=== PATIENT | male | born 1995 | race Caucasian/White ===

== ENCOUNTER 2018-01-10 21:07 | Inpatient (IN) | payer MEDICARE, MEDICAID ==
--- NOTE | 2018-01-10 22:30 | ED ---
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 Patient is on Prolixin, Synthroid, and Depakote. Apparently [facility] called the police and told them they were concerned he was not taking his medication so they brought him here. He takes medications for schizophrenia and bipolar disorder. He denies any thoughts of suicide, harming himself, or harming anyone else at this time. He states he was walking home from the store when the police confronted him. Patient has no other complaints at this time including shortness of breath, chest pain, abdominal pain, nausea or vomiting, headache, or visual changes. - Related Data Home Medications Medication Instructions Recorded Confirmed Cholecalciferol [Vitamin D3] 1,000 unit PO DAILY 01/10/18 01/10/18 Cyanocobalamin (Vitamin B-12) 1,000 mcg PO DAILY 01/10/18 01/10/18 [Vitamin B-12] Divalproex ER [Depakote ER] 1,000 mg PO HS 01/10/18 01/10/18 Levothyroxine Sodium [Synthroid] 75 mg PO DAILY 01/10/18 01/10/18 [place]-3 Fatty Acids/Fish Oil [Fish 2,000 mg PO HS 01/10/18 01/10/18 Oil 1,000 mg Softgel] fluPHENAZine DECANOATE [Prolixin 0.5 ml IM QMONTH 01/10/18 01/10/18 Decanoate] Allergies Allergy/AdvReac Type Severity Reaction Status Date / Time haloperidol [From Haldol] Allergy Rash/Hives Verified 01/10/18 22:12 haloperidol lactate Allergy Rash/Hives Verified 01/10/18 22:12 [From Haldol] risperidone [From Risperdal] Allergy Unknown Verified 01/10/18 22:12 Review of Systems ROS Statement: Those systems with pertinent positive or pertinent negative responses have been documented in the HPI. ROS Other: All systems not noted in ROS Statement are negative. Past Medical History Past Medical History: No Reported History Additional Past Medical History / Comment(s): Scoliosis , stomach ulcers History of Any Multi-Drug Resistant Organisms: None Reported Past Surgical History: No Surgical Hx Reported, Hernia Repair Past Anesthesia/Blood Transfusion Reactions: No Reported Reaction Past Psychological History: Depression, Schizophrenia Smoking Status: Current every day smoker Past Alcohol Use History: None Reported Past Drug Use History: None Reported General Exam Limitations: no limitations General appearance: alert, in no apparent distress Head exam: Present: atraumatic, normocephalic, normal inspection Eye exam: Present: normal appearance, PERRL, EOMI. Absent: scleral icterus, conjunctival injection, periorbital swelling ENT exam: Present: normal exam, mucous membranes moist Neck exam: Present: normal inspection, full ROM. Absent: tenderness, meningismus, lymphadenopathy Respiratory exam: Present: normal lung sounds bilaterally. Absent: respiratory distress, wheezes, rales, rhonchi, stridor Cardiovascular Exam: Present: regular rate, normal rhythm, normal heart sounds. Absent: systolic murmur, diastolic murmur, rubs, gallop, clicks Neurological exam: Present: alert, oriented X3, CN II-XII intact Psychiatric exam: Present: normal affect (Cooperative, pleasant), normal mood. Absent: homicidal ideation, suicidal ideation Course Vital Signs 01/10/18 01/10/18 21:08 22:39 Temperature 98.4 F Pulse Rate 114 H 58 L Respiratory 16 16 Rate Blood Pressure 151/83 121/77 O2 Sat by Pulse 100 96 Oximetry Medical Decision Making - Medical Decision Making 22-year-old male presents to the emergency department by police escort due to not taking his psychiatric medications. Patient was evaluated by EPS and admitted for this reason. He denies suicidal thoughts and states he is generally feeling well. - Lab Data Result diagrams: 01/11/18 11:40 01/11/18 11:40 Lab Results 01/10/18 Range/Units 22:20 Urine Opiates Screen Not Detected (NotDetected) Ur Oxycodone Screen Not Detected (NotDetected) Urine Methadone Screen Not Detected (NotDetected) Ur Propoxyphene Screen Not Detected (NotDetected) Ur Barbiturates Screen Not Detected (NotDetected) U Tricyclic Antidepress Not Detected (NotDetected) Ur Phencyclidine Scrn Not Detected (NotDetected) Ur Amphetamines Screen Not Detected (NotDetected) U Methamphetamines Scrn Not Detected (NotDetected) U Benzodiazepines Scrn Not Detected (NotDetected) Urine Cocaine Screen Not Detected (NotDetected) U Marijuana (THC) Screen Detected H (NotDetected) Disposition Clinical Impression: Noncompliance with medication regimen Disposition: ADMITTED IP TO THIS [facility] Condition: Good
[2018-01-10 22:53] LABS: Amphetamine Screen,Urine Not Detected (NotDetected); Barbiturate Screen,Urine Not Detected (NotDetected); Benzodiazepines Screen,Urine Not Detected (NotDetected); Cocaine Screen,Urine Not Detected (NotDetected); Methadone Screen, Urine Not Detected (NotDetected); Opiate Screen,Urine Not Detected (NotDetected); Oxycodone Screen, Urine Not Detected (NotDetected); Phencyclidine Screen,Urine Not Detected (NotDetected); Tricyclic Antidepressant,Urine Not Detected (NotDetected); Urn Cannabinoid Scrn Detected (NotDetected)
[2018-01-11] MEDS ORDERED: ZIPRASIDONE 20 MG VIAL IM PRN (03:08)
[2018-01-11] MEDS ORDERED: MAGNESIUM HYDROXIDE 2,400 MG/10 ML CUP PO PRN (03:08)
[2018-01-11] MEDS ORDERED: MAG HYDROX/AL HYDROX/SIMETH 30 ML CUP PO PRN (03:08)
[2018-01-11] MEDS ORDERED: ACETAMINOPHEN TAB 325 MG TAB PO PRN (03:08)
[2018-01-11] MEDS ORDERED: LORazepam 1 MG TAB PO PRN (03:08)
--- NOTE | 2018-01-11 06:56 | P.MDCNMH ---
History of Present Illness H&P Date: 01/11/18 Chief Complaint: medicalevaluation 22-year-old male with history of hypothyroid and schizophrenia. Patient presented the hospital escorted with police upon court order as he was petitioned by [facility] due to medical noncompliance and not taking his medications. He currently denies any physical complaints denies any chest pain or trouble breathing fevers or chills denies any coughing denies any headache denies any abdominal pain nausea vomiting denies any focal neurologic deficits. Patient denies any suicidal or homicidal ideation he claims that he sometimes takes his medications. She denied any visual or auditory hallucinations at this time. He denied any drug abuse, denied any regular alcohol use. Review of Systems Pertinent positives as noted in HPI. All other systems were reviewed and are negative Past Medical History Past Medical History: No Reported History Additional Past Medical History / Comment(s): Scoliosis , stomach ulcers History of Any Multi-Drug Resistant Organisms: None Reported Past Surgical History: No Surgical Hx Reported, Hernia Repair Past Anesthesia/Blood Transfusion Reactions: No Reported Reaction Smoking Status: Current every day smoker Medications and Allergies Home Medications Medication Instructions Recorded Confirmed Type Cholecalciferol [Vitamin D3] 1,000 unit PO DAILY 01/10/18 01/10/18 History Cyanocobalamin (Vitamin B-12) 1,000 mcg PO DAILY 01/10/18 01/10/18 History [Vitamin B-12] Divalproex ER [Depakote ER] 1,000 mg PO HS 01/10/18 01/10/18 History Levothyroxine Sodium [Synthroid] 75 mg PO DAILY 01/10/18 01/10/18 History [place]-3 Fatty Acids/Fish Oil [Fish 2,000 mg PO HS 01/10/18 01/10/18 History Oil 1,000 mg Softgel] fluPHENAZine DECANOATE [Prolixin 0.5 ml IM QMONTH 01/10/18 01/10/18 History Decanoate] Allergies Allergy/AdvReac Type Severity Reaction Status Date / Time haloperidol [From Haldol] Allergy Rash/Hives Verified 01/10/18 22:12 haloperidol lactate Allergy Rash/Hives Verified 01/10/18 22:12 [From Haldol] risperidone [From Risperdal] Allergy Unknown Verified 01/10/18 22:12 Physical Exam Vitals: Vital Signs Temp Pulse Pulse Resp BP BP Pulse Ox 01/11/18 03:50 70 12 118/64 01/11/18 03:10 97.4 F L 67 16 116/72 96 01/10/18 22:39 58 L 16 121/77 96 01/10/18 21:08 98.4 F 114 H 16 151/83 100 Intake and Output 01/10/18 01/10/18 01/11/18 14:59 22:59 06:59 Other: Weight 97.522 kg 90.265 kg Constitutional: No acute distress, conversant, pleasant Eyes: Anicteric sclerae, moist conjunctiva, no lid-lag Pupils equal round reactive to light ENMT: NC/AT Oropharynx clear, no erythema, exudates Neck: Supple, FROM, no masses, or JVD No carotid bruits No thyromegaly Lungs: Clear to auscultation Clear to percussion Normal respiratory effort, no accessory muscle use Cardiovascular: Heart regular in rate and rhythm, No murmurs, gallops, or rubs No peripheral edema Abdominal: Soft Nontender, no guarding, rebound or rigidity Abdomen moving with respiration Normoactive bowel sounds No hepatomegaly, No splenomegaly No palpable mass No abdominal wall hernia noted Skin: Normal temperature, tone, texture, turgor No induration No subcutaneous nodules No lesions No ulcers There is small area of petechial rash over the medial aspect of the left ankle nontender to palpation no induration no swelling no drainage. Extremities: No digital cyanosis No clubbing Pedal pulses intact and symmetrical Radial pulses intact and symmetrical No calf tenderness Psychiatric: Alert and oriented to person, place and time Appropriate affect fair judgement Neuro Muscles Strength 5/5 in all 4 extremities Sensation to light touch grossly present throughout Cranial nerves II-XII grossly intact No focal sensory deficits Lymphatics: no palpable cervical or supraclavicular , or inguinal lymph nodes Cranial Nerve Examination - Cranial Nerves Cranial Nerve II- Optic: Intact Cranial Nerve III- Oculomotor: Intact Cranial Nerve IV- Trochlear: Intact Cranial Nerve V- Trigeminal: Intact Cranial Nerve - Abducens: Intact Cranial Nerve VII- Facial: Intact Cranial Nerve VIII- Auditory: Intact Cranial Nerve IX- Glossopharyngeal: Intact Cranial Nerve X- Vagus: Intact Cranial Nerve XI- Accessory: Intact Cranial Nerve XII- Hypoglossal: Intact Results Labs: Abnormal Lab Results - Last 24 Hours (Table) 01/10/18 Range/Units 22:20 U Marijuana (THC) Screen Detected H (NotDetected) Assessment and Plan Assessment: 22-year-old male with history of mental health illness schizophrenia, patient petitioned and brought the hospital by court order by [facility] due to medical noncompliance. Currently denies any medical problems Plan: History of schizophrenia History of depression Management per psych Foot rash possibly tenia corporis clotrimazol + steroid cream BID Tobacco smoking abuse Patient counseled to quit smoking Nicotine replacement therapy offered History of hypothyroidism Continue levothyroxine TSH and free T4 Low risk for DVT patient is ambulatory Thank you for allowing us to participate in the care of this patient. We will follow peripherally. Do not hesitate to contact us with questions. Someone can be reached from the [facility] hospitalist group at all hours of the day at [phone].
[2018-01-11] MEDS: LEVOTHYROXINE 75 MCG TAB PO SCH (07:30)
[2018-01-11] MEDS: NICOTINE 21MG/24HR PATCH TRANSDERM SCH (07:30)
[2018-01-11] MEDS: CLOTRIMAZOLE/BETAMETH 1-0.05% CREAM 45 GM TUBE TOPICAL SCH ×2 (08:55→20:06)
[2018-01-11] MEDS ORDERED: LEVOTHYROXINE 75 MCG TAB PO SCH (09:00)
[2018-01-11 12:27] LABS: Basophils % (A) 0 %; Eosinophils # (A) 0.1 k/uL (0-0.7); Eosinophils % (A) 1 %; HCT 49.9 % (39.0-53.0); HGB 16.2 gm/dL (13.0-17.5); Lymphocytes # (A) 1.9 k/uL (1.0-4.8); Lymphocytes % (A) 19 %; MCH 32.2 pg (25.0-35.0); MCHC 32.3 g/dL (31.0-37.0); MCV 99.4 fL (80.0-100.0); Mean Platelet Volume 6.5; Monocytes # (A) 0.4 k/uL (0-1.0); Monocytes % (A) 4 %; Neutrophils # (A) 7.6 k/uL (1.3-7.7); Neutrophils % (A) 75 %; Platelet Count 232 k/uL (150-450); RBC 5.02 m/uL (4.30-5.90); RDW 12.9 % (11.5-15.5); WBC 10.2 k/uL (3.8-10.6)
[2018-01-11 12:47] LABS: ALT 17 U/L (21-72); AST 18 U/L (17-59); Albumin 5.4 g/dL (3.5-5.0); Alkaline Phosphatase 108 U/L (38-126); Anion Gap 12 mmol/L; Bilirubin, Delta 0.2 mg/dL (0.0-0.2); Bilirubin,Unconjugated 0.8 mg/dL (0.0-1.1); Blood Urea Nitrogen 12 mg/dL (9-20); Calcium 10.6 mg/dL (8.4-10.2); Carbon Dioxide 25 mmol/L (22-30); Chloride 106 mmol/L (98-107); Cholesterol 135 mg/dL (<200); Glucose 94 mg/dL (74-99); HDL Cholesterol 42 mg/dL (40-60); LDL Cholesterol,Calculated 73 mg/dL (0-99); Potassium 4.4 mmol/L (3.5-5.1); Sodium 143 mmol/L (137-145); Total Protein 8.3 g/dL (6.3-8.2); Triglycerides 100 mg/dL (<150)
[2018-01-11 12:52] LABS: Valproic Acid (Depakene) <10.0 ug/mL
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
[2018-01-11] MEDS: DIVALPROEX ER 500 MG TAB.ER.24H PO SCH (20:05)
[2018-01-11 21:00] LABS: Hemoglobin A1C 5.1 % (4.0-6.0)
[2018-01-12] MEDS: LEVOTHYROXINE 75 MCG TAB PO SCH (06:12)
[2018-01-12] MEDS: DIVALPROEX ER 500 MG TAB.ER.24H PO SCH ×3 (07:42→20:03)
[2018-01-12] MEDS: NICOTINE 21MG/24HR PATCH TRANSDERM SCH (07:42)
[2018-01-12] MEDS: CLOTRIMAZOLE/BETAMETH 1-0.05% CREAM 45 GM TUBE TOPICAL SCH ×2 (07:43→20:03)
--- NOTE | 2018-01-12 15:02 | P.PN ---
Progress Note - Text Progress Note Date: 01/12/18 IDENTIFICATION DATA: 22 year-old male, lives with his friend. He has a public guardian Joy. He is on Court order for treatment which will July 24, 2018. Patient was petitioned by his [facility] and brought to Emergency Center due to not following through with his court order of treatment. Admits to not taking Depakote as prescribed for three weeks. He also takes Prolixin decanoate 0.5ml/ q month prescribed through [facility]. his last dose date need to be explored, so he can receive his injection. INTERVAL HISTORY: He syas he is doing the best he can here. He reports going to all his groups even though he says he does not have to. He denies symptoms of psychosis, tsering or depression. He has foul body odor and was dressed heavily . He reports good sleep and appetite. Reports being complaint with medications and denies side effects. MENTAL STATUS EXAMINATION: The patient is alert and oriented 4 and in no apparent distress. Motor and speech behaviors are within normal limits. Mood is "okay" and affect is neutral with some range and reactivity. thought processes linear thought content is negative for suicidal or homicidal ideation. insight and judgment are limited. ASSESSMENT AND PLAN: No further changes at this time.
[2018-01-13] MEDS: LEVOTHYROXINE 75 MCG TAB PO SCH (07:14)
[2018-01-13] MEDS: NICOTINE 21MG/24HR PATCH TRANSDERM SCH (08:53)
[2018-01-13] MEDS: CLOTRIMAZOLE/BETAMETH 1-0.05% CREAM 45 GM TUBE TOPICAL SCH ×2 (08:54→20:09)
[2018-01-13] MEDS ORDERED: fluPHENAZine DECANOATE 25 MG/ML 5ML MDV IM ONE (11:00)
--- NOTE | 2018-01-13 11:03 | P.PN ---
Progress Note - Text Interval history: The patient is found in group he follows me to an interview room. The patient was admitted over the weekend due to noncompliance with an existing treatment order. He has an unspecified psychotic disorder and is prescribed Prolixin Decanoate as well as Depakote ER. He admits he had not been on this medication and he was petition by [facility]. The patient has been compliant with oral medication so far. He has been overdue for his Prolixin Decanoate injection of 12.5 mg which he receives every 4 weeks. He indicates that he sleeping 10-11 hours in the evening he has been attending groups. He reports he has been showering. He is hoping to be discharged as soon as possible. He indicates it's been difficult keeping up with his medication has he has no phone and no transportation of his own. We believe he is homeless he states he staying with her friend. Mental status exam: The patient is a tall thin male appearing his stated age. He is dressed in his own clothing wearing a hooded sweatshirt with the berumen up. Eye contact is appropriate speech is fluent spontaneous nonpressured. He is malodorous. He reports his mood is good he is reporting no suicidal or homicidal ideation intent or plan. He indicates having no symptoms and he clearly is trying to facilitate a discharge. He demonstrates no flight of ideas or loose associations. He demonstrates no verbal or physical aggressiveness he demonstrates no involuntary repetitive movements. He is oriented to person place and date. Affect is bright. Plan: The patient has been admitted on an existing treatment order for noncompliance with medication. His Depakote ER has been restarted he will receive the Prolixin Decanoate injection today of 12.5 mg. We will monitor him for safety and encourage full participation in the milieu. It's reported that he does have a guardian. Vital signs reviewed.
[2018-01-13] MEDS: DIVALPROEX ER 500 MG TAB.ER.24H PO SCH (20:08)
[2018-01-14] MEDS: LEVOTHYROXINE 75 MCG TAB PO SCH (07:09)
[2018-01-14] MEDS: NICOTINE 21MG/24HR PATCH TRANSDERM SCH (08:19)
[2018-01-14] MEDS: CLOTRIMAZOLE/BETAMETH 1-0.05% CREAM 45 GM TUBE TOPICAL SCH ×2 (08:20→20:57)
--- NOTE | 2018-01-14 10:57 | P.PN ---
Progress Note - Text Interval history: The patient is found in the hallway he follows me to an interview room. He reports his mood is good. He indicates he slept well last night appetite is stable he is showering. He has been attending groups. Staff report no behavioral disturbances in the last 24 hours. We reviewed his psychotropic medications he has no questions or concerns. He plans to return to his own residence. We discussed the importance of following up with [facility] upon discharge. Mental status exam: The patient is a male appearing his stated age he is dressed in his own clothing eye contact is appropriate speech is fluent hygiene grooming are much improved. He reports his mood is good he has a congruent affect. He reports no suicidal or homicidal ideation intent or plan. He reports no auditory or visual hallucinations or any specific delusions. He demonstrates no tangential thinking loose associations or flight of ideas. He is easily directed in the session and is cooperative. He demonstrates no verbal or physical aggressiveness. He demonstrates no repetitive involuntary movements. He is oriented to person place and date. Insight and judgment are improving. Plan: The patient will continue on his current psychotropic medication. We will consider discharging him tomorrow. We will order a Depakote level tomorrow morning. Vital signs reviewed. He is encouraged to continue participating in the milieu and we will continue monitoring him for safety.
[2018-01-14] MEDS: DIVALPROEX ER 500 MG TAB.ER.24H PO SCH (20:57)
[2018-01-15] MEDS: LEVOTHYROXINE 75 MCG TAB PO SCH (06:00)
[2018-01-15 06:04] VITALS: BP 118/67; PULSE 75; RESP 14; TEMP 97.4
[2018-01-15] MEDS: CLOTRIMAZOLE/BETAMETH 1-0.05% CREAM 45 GM TUBE TOPICAL SCH (08:39)
[2018-01-15] MEDS: NICOTINE 21MG/24HR PATCH TRANSDERM SCH (08:39)
--- NOTE | 2018-01-15 09:09 | P.DS ---
Providers Date of admission: 01/11/18 02:42 Expected date of discharge: 01/15/18 Attending physician: Johnny Martino Consults: 01/11/18 03:08 Consult Physician Routine Consulting Provider: Yuridia Barth Consult Reason/Comments: Routine H & P and follow up Do you want consulting provider notified?: Already Contacted Primary care physician: [facility] - Discharge Diagnosis(es) (1) Schizophrenia Current Visit: No Status: Acute Priority: High Hospital Course: Brief summary of admission note: This patient is a 22-year-old male who was admitted to the mental health unit through the emergency room due to noncompliance with an existing court order for treatment. 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 He was prescribed Prolixin decanoate monthly and Depakote ER 1000 mg at bedtime. He reported no symptoms at the time. For full details please refer to the psychiatric evaluation dated 01/11/2018. Summary of hospital course: The patient was admitted to the mental health unit involuntarily on an existing treatment order issued by the court. He was started on his Depakote ER 1000 mg at bedtime and he was given an injection of Prolixin Decanoate 12.5 mg. He was seen by internal medicine for routine history and physical exam. Social work met with him to complete a psychosocial assessment. Social work has been in contact with the patient's guardian. The patient demonstrated appropriate behavior on the mental health unit he demonstrated no agitated behavior he was cooperative and directable. He endorses no suicidal or homicidal thoughts there were no acute symptoms of psychosis. We are drawing his Depakote level this morning. His hygiene was impaired upon presentation but with direction he did shower and has been maintaining ADLs in this structured environment. Arrangements are being made for him to be discharged today. Mental status exam: The patient is a tall male appearing his stated age. Eye contact is appropriate speech is fluent spontaneous nonpressured. He has a bright and jovial affect today. He demonstrates no tangential thinking loose associations or flight of ideas. He reports no suicidal or homicidal ideation intent or plan. He reports no hopelessness thinking. He endorses no auditory or visual hallucinations or any specific delusions. There is no observed evidence of acute psychosis at this time. He demonstrates no verbal or physical aggressiveness. He demonstrates no involuntary repetitive movements. Insight and judgment improved. He is oriented to person place and date. Impressions 1 schizophrenia, cannabis use disorder, alcohol use disorder. Plan: The patient is being discharged mental health unit today to return home. The patient's guardian has been notified of the discharge plan. He will continue on Depakote ER 1000 mg at bedtime and Prolixin decanoate every 4 weeks. He is instructed to abstain from any use of alcohol or illicit drugs. We discussed that these could exacerbate his symptoms of psychosis and elevate his safety risk. He does not wish to participate in inpatient chemical dependency treatment or use a medication to help abstain from substance use. He is instructed to return to the hospital with any acute safety concerns. [facility] Patient Condition at Discharge: Stable Plan - Discharge Summary New Discharge Prescriptions: New Nicotine 21Mg/24Hr Patch [Habitrol] 1 patch TRANSDERM DAILY #10 patch Continue [place]-3 Fatty Acids/Fish Oil [Fish Oil 1,000 mg Softgel] 2,000 mg PO HS Levothyroxine Sodium [Synthroid] 75 mg PO DAILY Cyanocobalamin (Vitamin B-12) [Vitamin B-12] 1,000 mcg PO DAILY Cholecalciferol [Vitamin D3] 1,000 unit PO DAILY Divalproex ER [Depakote ER] 1,000 mg PO HS #60 tab.er.24h fluPHENAZine DECANOATE [Prolixin Decanoate] 0.5 ml IM QMONTH #1 ml Discharge Medication List Cholecalciferol [Vitamin D3] 1,000 unit PO DAILY 01/10/18 [History] Cyanocobalamin (Vitamin B-12) [Vitamin B-12] 1,000 mcg PO DAILY 01/10/18 [ History] Levothyroxine Sodium [Synthroid] 75 mg PO DAILY 01/10/18 [History] [place]-3 Fatty Acids/Fish Oil [Fish Oil 1,000 mg Softgel] 2,000 mg PO HS [History] Divalproex ER [Depakote ER] 1,000 mg PO HS #60 tab.er.24h 01/15/18 [Rx] Nicotine 21Mg/24Hr Patch [Habitrol] 1 patch TRANSDERM DAILY #10 patch 01/15/18 [ Rx] fluPHENAZine DECANOATE [Prolixin Decanoate] 0.5 ml IM QMONTH #1 ml 01/15/18 [Rx] Follow up Appointment(s)/Referral(s): [facility] [Primary Care Provider] - 1-2 days
[2018-01-15 11:33] LABS: Valproic Acid (Depakene) 59.4 ug/mL
== END 2018-01-15 12:00 | disposition home or self-care (01) | DRG 885 ==
LOC: EC 21:07 → 3MHU 01-11 02:42
PROVIDERS: ADMIT Psychiatry & Neurology Psychiatry; ATTEND Psychiatry & Neurology Psychiatry
DX: F20.9 Schizophrenia, unspecified (principal); F12.10 Cannabis abuse, uncomplicated; F10.10 Alcohol abuse, uncomplicated; T43.3X6A Underdosing of phenothiazine antipsychotics and neuroleptics, initial encounter; T38.1X6A Underdosing of thyroid hormones and substitutes, initial encounter; T42.6X6A Underdosing of other antiepileptic and sedative-hypnotic drugs, initial encounter; M41.9 Scoliosis, unspecified; E03.9 Hypothyroidism, unspecified; F17.210 Nicotine dependence, cigarettes, uncomplicated; Z71.6 Tobacco abuse counseling; Z91.128 Patient's intentional underdosing of medication regimen for other reason; Z79.890 Hormone replacement therapy; Z79.899 Other long term (current) drug therapy; Z87.11 Personal history of peptic ulcer disease; Z91.5 Personal history of self-harm; Z91.19 Patient's noncompliance with other medical treatment and regimen; Z59.0 Homelessness; Z62.810 Personal history of physical and sexual abuse in childhood; Z88.8 Allergy status to other drugs, medicaments and biological substances; Z81.8 Family history of other mental and behavioral disorders
CPT/HCPCS: 80053; 80061; 80164; 80306; 82075; 82248; 83036; 84443; 84450; 84460; 85025; 99285

== ENCOUNTER 2018-06-07 17:46 | Emergency (ER) | payer MEDICARE, MEDICAID ==
[2018-06-07 17:56] VITALS: BP 116/72; PULSE 90; RESP 16; TEMP 98.5
[2018-06-07] MEDS ORDERED: metroNIDAZOLE 500 MG TAB PO STA (19:07)
[2018-06-07] MEDS ORDERED: SULFAMETHOX-TMP 800-160MG 1 EACH TAB PO STA (19:07)
--- NOTE | 2018-06-07 19:08 | ED ---
General Adult HPI - General Chief complaint: Abdominal Pain Stated complaint: Rectal Pain Time Seen by Provider: 06/07/18 17:59 Source: patient, RN notes reviewed, old records reviewed Mode of arrival: ambulatory Limitations: no limitations - History of Present Illness Initial comments: 22-year-old male patient with no pertinent past medical history presents to ED with pain around his rectal region. Patient has been going on for approximately 2-3 days. Patient denies any other complaints today. Patient denies any concern for urinary tract infection, sexually has been infection. Patient denies any nausea vomiting diarrhea, fevers or chills. Systemic: Pt denies fatigue, myalgia, fever/chills, rash. Pt denies weakness, night sweats, weight loss. Neuro: Pt denies headache, visual disturbances, syncope or pre-syncope. HEENT: Pt denies ocular discharge or irritation, otalgia, rhinorrhea, pharyngitis or notable lymphadenopathy. Cardiopulmonary: Pt denies chest pain, SOB, heart palpitations, dyspnea on exertion. Abdominal/GI: Pt denies abdominal pain, n/v/d. : Pt denies dysuria, burning w/ urination, frequency/urgency. Denies new onset urinary or bowel incontinence. MSK: Pt denies myalgia, loss of strength or function in extremities. Neuro: Pt denies new onset weakness, paresthesias. - Related Data Home Medications Medication Instructions Recorded Confirmed Cholecalciferol [Vitamin D3] 1,000 unit PO DAILY 01/10/18 01/10/18 Cyanocobalamin (Vitamin B-12) 1,000 mcg PO DAILY 01/10/18 01/10/18 [Vitamin B-12] Levothyroxine Sodium [Synthroid] 75 mg PO DAILY 01/10/18 01/10/18 [place]-3 Fatty Acids/Fish Oil [Fish 2,000 mg PO HS 01/10/18 01/10/18 Oil 1,000 mg Softgel] Previous Rx's Medication Instructions Recorded Divalproex ER [Depakote ER] 1,000 mg PO HS #60 tab.er.24h 01/15/18 Nicotine 21Mg/24Hr Patch [Habitrol] 1 patch TRANSDERM DAILY #10 patch 01/15/18 fluPHENAZine DECANOATE [Prolixin 0.5 ml IM QMONTH #1 ml 01/15/18 Decanoate] Sulfamethox-Tmp 800-160Mg [Bactrim 1 tab PO Q12HR #20 tab 06/07/18 DS 800-160 mg] metroNIDAZOLE [Flagyl] 500 mg PO TID 10 Days #30 tab 06/07/18 Allergies Allergy/AdvReac Type Severity Reaction Status Date / Time aspirin Allergy Unknown Verified 06/07/18 17:56 haloperidol [From Haldol] Allergy Rash/Hives Verified 06/07/18 17:56 haloperidol lactate Allergy Rash/Hives Verified 06/07/18 17:56 [From Haldol] risperidone [From Risperdal] Allergy Unknown Verified 06/07/18 17:56 Review of Systems ROS Statement: Those systems with pertinent positive or pertinent negative responses have been documented in the HPI. ROS Other: All systems not noted in ROS Statement are negative. Past Medical History Past Medical History: No Reported History Additional Past Medical History / Comment(s): Scoliosis , stomach ulcers History of Any Multi-Drug Resistant Organisms: None Reported Past Surgical History: No Surgical Hx Reported, Hernia Repair Past Anesthesia/Blood Transfusion Reactions: No Reported Reaction Past Psychological History: Depression, Schizophrenia Smoking Status: Current every day smoker Past Alcohol Use History: None Reported Past Drug Use History: None Reported General Exam - General Exam Comments Initial Comments: Constitutional: NAD, AOX3, Pt has pleasant affect. HEENT: NC/AT, trachea midline, neck supple, no lymphadenopathy. Posterior pharynx non erythematous, without exudates. External ears appear normal, without discharge. Mucous membranes moist. Eyes PERRLA, EOM intact. There is no scleral icterus. No pallor noted. Cardiopulmonary: RRR, no murmurs, rubs or gallops, no JVD noted. Lungs CTAB in anterior and posterior peraza. No peripheral edema. Abdominal exam: Abdomen soft and non-distended. Abdomen non-tender to palpation in all 4 quadrants. Bowel sounds active in LLQ. No hepatosplenomegaly. No ecchymosis Neuro: CN II-XII grossly intact. No nuchal rigidity. MSK: No posterior calf tenderness bilaterally, homans sign negative bilaterally. Posterior tibialis and radial pulse +2 bilaterally. Sensation intact in upper and lower extremities. Full active ROM in upper and lower extremities, 5/5 stregnth. Rectal: External hemorrhoid noted. Small amount of superficial drainage noted, no fluctuance. Limitations: no limitations Course Vital Signs 06/07/18 17:53 Temperature 98.5 F Pulse Rate 90 Respiratory 16 Rate Blood Pressure 116/72 O2 Sat by Pulse 97 Oximetry Medical Decision Making - Medical Decision Making 22-year-old male patient with no pertinent past medical history presents to ED with pain around his rectal region. Patient has been going on for approximately 2-3 days. Patient denies any other complaints today. Patient denies any concern for urinary tract infection, sexually has been infection. Patient denies any nausea vomiting diarrhea, fevers or chills. Pt VSS, afebrile. Physical exam displayed: External hemorrhoid noted. Small amount of superficial drainage noted, no fluctuance. Patient will be placed on bactrim and flagyl. Ciprofloxacin avoided due to drug interaction. Pt will be discharged with close outpatient follow up. Case discussed and pt seen by Dr. Wilkins. Disposition Clinical Impression: External hemorrhoid Disposition: HOME SELF-CARE Condition: Stable Instructions (If sedation given, give patient instructions): [place] (DC), Hemorrhoids (ED) Additional Instructions: Patient to adhere to previously discussed treatment plan and will take medication(s) as directed. Patient to follow up with PCP in 1-2 days. Patient to return to ED if symptoms do not improve. Please take medication as directed. Please follow-up with primary care provider tomorrow. Please return to ER if condition worsens in any way. Prescriptions: Sulfamethox-Tmp 800-160Mg [Bactrim DS 800-160 mg] 1 tab PO Q12HR #20 tab metroNIDAZOLE [Flagyl] 500 mg PO TID 10 Days #30 tab Is patient prescribed a controlled substance at d/c from ED?: No Referrals: None,Stated [Primary Care Provider] - 1-2 days [facility] [NON-STAFF] - 1-2 days
== END 2018-06-07 19:28 | disposition home or self-care (01) ==
LOC: EC 17:46
DX: K64.4 Residual hemorrhoidal skin tags (principal); F17.200 Nicotine dependence, unspecified, uncomplicated; Z79.890 Hormone replacement therapy; Z88.6 Allergy status to analgesic agent; Z88.8 Allergy status to other drugs, medicaments and biological substances
CPT/HCPCS: 99284

== ENCOUNTER 2018-07-04 19:09 | Emergency (ER) | payer MEDICARE, OTHER ==
[2018-07-04 19:16] VITALS: RESP 18; TEMP 98.4
[2018-07-04] MEDS ORDERED: SODIUM CHLORIDE 0.9% 500 ML 500 ML IV STA (19:58)
--- NOTE | 2018-07-04 20:08 | XR ---
EXAMINATION: XR chest 2V DATE AND TIME: 07/04/2018 7:41 PM CLINICAL INDICATION: Cough; Pain TECHNIQUE: PA and lateral COMPARISON: 08/08/2012 FINDINGS: The lungs are clear. The pleural spaces are negative. The cardiac silhouette is not enlarged. The remainder of the mediastinal silhouette is unremarkable. The skeletal structures and soft tissues are negative for acute findings. IMPRESSION: NO ACUTE PROCESS.
[2018-07-04 20:41] LABS: ALT 13 U/L (21-72); AST 20 U/L (17-59); Albumin 5.2 g/dL (3.5-5.0); Alkaline Phosphatase 94 U/L (38-126); Anion Gap 12 mmol/L; Blood Urea Nitrogen 10 mg/dL (9-20); Calcium 10.2 mg/dL (8.4-10.2); Carbon Dioxide 26 mmol/L (22-30); Chloride 105 mmol/L (98-107); Glucose 106 mg/dL (74-99); Potassium 4.1 mmol/L (3.5-5.1); Sodium 143 mmol/L (137-145); Total Bilirubin 1.3 mg/dL (0.2-1.3); Total Protein 8.1 g/dL (6.3-8.2)
[2018-07-04 20:45] LABS: D-Dimer <0.17 mg/L FEU (<0.60); Partial Thromboplastin Time 26.4 sec (22.0-30.0); Prothrombin Time 10.5 sec (9.0-12.0)
[2018-07-04 20:46] LABS: Basophils % (A) 0 %; Eosinophils # (A) 0.1 k/uL (0-0.7); Eosinophils % (A) 1 %; HCT 48.5 % (39.0-53.0); HGB 16.3 gm/dL (13.0-17.5); Lymphocytes # (A) 1.9 k/uL (1.0-4.8); Lymphocytes % (A) 23 %; MCH 32.2 pg (25.0-35.0); MCHC 33.6 g/dL (31.0-37.0); MCV 95.9 fL (80.0-100.0); Mean Platelet Volume 6.4; Monocytes # (A) 0.5 k/uL (0-1.0); Monocytes % (A) 6 %; Neutrophils # (A) 5.7 k/uL (1.3-7.7); Neutrophils % (A) 68 %; Platelet Count 188 k/uL (150-450); RBC 5.06 m/uL (4.30-5.90); RDW 12.9 % (11.5-15.5); WBC 8.3 k/uL (3.8-10.6)
--- NOTE | 2018-07-04 21:33 | ED ---
General Adult HPI - General Chief complaint: Chest Pain Stated complaint: Chest hurts when bending over Time Seen by Provider: 07/04/18 19:19 Source: patient, RN notes reviewed, old records reviewed Mode of arrival: ambulatory Limitations: no limitations - History of Present Illness Initial comments: 21-year-old male patient with no pertinent past medical history presents to ED approximately 3 days of cough and 1 day of chest pain. Patient put that when he leans forward he has some mild pain in his left breast region. Patient denies any pain at rest. Patient denies any pain with exertion. Patient states that the pain is only exertional. Describes it as a dull pain which is somewhat reproducible with palpation. Patient denies any prior cardiac history. Denies any shortness of breath. Patient denies any drug use. Patient states that he has also had some minor congestion as well as for approximately 3 days. Denies all other complaints. Systemic: Pt denies fatigue, myalgia, fever/chills, rash. Pt denies weakness, night sweats, weight loss. Neuro: Pt denies headache, visual disturbances, syncope or pre-syncope. HEENT: Pt denies ocular discharge or irritation, otalgia, rhinorrhea, or notable lymphadenopathy. Cardiopulmonary: Pt denies SOB, heart palpitations, dyspnea on exertion. Abdominal/GI: Pt denies abdominal pain, n/v/d. : Pt denies dysuria, burning w/ urination, frequency/urgency. Denies new onset urinary or bowel incontinence. MSK: Pt denies myalgia, loss of strength or function in extremities. Neuro: Pt denies new onset weakness, paresthesias. - Related Data Home Medications Medication Instructions Recorded Confirmed Cholecalciferol [Vitamin D3 (25 1,000 unit PO DAILY 01/10/18 01/10/18 Mcg = 1000 Iu)] Cyanocobalamin (Vitamin B-12) 1,000 mcg PO DAILY 01/10/18 01/10/18 [Vitamin B-12] Levothyroxine Sodium [Synthroid] 75 mg PO DAILY 01/10/18 01/10/18 [place]-3 Fatty Acids/Fish Oil [Fish 2,000 mg PO HS 01/10/18 01/10/18 Oil 1,000 mg Softgel] Previous Rx's Medication Instructions Recorded Divalproex ER [Depakote ER] 1,000 mg PO HS #60 tab.er.24h 01/15/18 Nicotine 21Mg/24Hr Patch [Habitrol] 1 patch TRANSDERM DAILY #10 patch 01/15/18 fluPHENAZine DECANOATE [Prolixin 0.5 ml IM QMONTH #1 ml 01/15/18 Decanoate] Sulfamethox-Tmp 800-160Mg [Bactrim 1 tab PO Q12HR #20 tab 06/07/18 DS 800-160 mg] metroNIDAZOLE [Flagyl] 500 mg PO TID 10 Days #30 tab 06/07/18 Allergies Allergy/AdvReac Type Severity Reaction Status Date / Time aspirin Allergy Unknown Verified 07/04/18 19:16 haloperidol [From Haldol] Allergy Rash/Hives Verified 07/04/18 19:16 haloperidol lactate Allergy Rash/Hives Verified 07/04/18 19:16 [From Haldol] risperidone [From Risperdal] Allergy Unknown Verified 07/04/18 19:16 Review of Systems ROS Statement: Those systems with pertinent positive or pertinent negative responses have been documented in the HPI. ROS Other: All systems not noted in ROS Statement are negative. Past Medical History Past Medical History: No Reported History Additional Past Medical History / Comment(s): Scoliosis , stomach ulcers History of Any Multi-Drug Resistant Organisms: None Reported Past Surgical History: No Surgical Hx Reported, Hernia Repair Past Anesthesia/Blood Transfusion Reactions: No Reported Reaction Past Psychological History: Depression, Schizophrenia Smoking Status: Current every day smoker Past Alcohol Use History: Occasional Past Drug Use History: None Reported General Exam - General Exam Comments Initial Comments: Constitutional: NAD, AOX3, Pt has pleasant affect. HEENT: NC/AT, trachea midline, neck supple, no lymphadenopathy. Posterior pharynx non erythematous, without exudates. External ears appear normal, without discharge. Mucous membranes moist. Eyes PERRLA, EOM intact. There is no scleral icterus. No pallor noted. Cardiopulmonary: RRR, no murmurs, rubs or gallops, no JVD noted. Lungs CTAB in anterior and posterior peraza. No peripheral edema. Abdominal exam: Abdomen soft and non-distended. Abdomen non-tender to palpation in all 4 quadrants. Bowel sounds active in LLQ. No hepatosplenomegaly. No ecchymosis Neuro: CN II-XII grossly intact. No nuchal rigidity. MSK: No posterior calf tenderness bilaterally, homans sign negative bilaterally. Posterior tibialis and radial pulse +2 bilaterally. Sensation intact in upper and lower extremities. Full active ROM in upper and lower extremities, 5/5 stregnth. Limitations: no limitations Course Vital Signs 07/04/18 19:13 Temperature 98.4 F Pulse Rate 88 Respiratory 18 Rate Blood Pressure 119/82 O2 Sat by Pulse 97 Oximetry Medical Decision Making - Medical Decision Making 21-year-old male patient with no pertinent past medical history presents to ED approximately 3 days of cough and 1 day of chest pain. Patient put that when he leans forward he has some mild pain in his left breast region. Patient denies any pain at rest. Patient denies any pain with exertion. Patient states that the pain is only exertional. Describes it as a dull pain which is somewhat reproducible with palpation. Patient denies any prior cardiac history. Denies any shortness of breath. Patient denies any drug use. Patient states that he has also had some minor congestion as well as for approximately 3 days. Denies all other complaints. Pt VSS, afebrile. Physical exam displayed: No acute pathology. Laboratory investigations revealed non-impressive CBC, CMP. Coagulation studies within normal limits. D-dimer negative. Troponin negative. Chest x-ray revealed no acute process. EKG displayed no significant change from prior EKG. No concern for acute ischemia. Patient chest pain atypical nature. Patient discharged to follow up with primary care provider tomorrow. Patient will return to ER if condition worsens in any way. Case discussed with Dr. Wells. - Lab Data Result diagrams: 07/04/18 20:10 07/04/18 20:10 Lab Results 07/04/18 07/04/18 07/04/18 Range/Units 20:10 20:10 20:10 WBC 8.3 (3.8-10.6) k/uL RBC 5.06 (4.30-5.90) m/uL Hgb 16.3 (13.0-17.5) gm/dL Hct 48.5 (39.0-53.0) % MCV 95.9 (80.0-100.0) fL MCH 32.2 (25.0-35.0) pg MCHC 33.6 (31.0-37.0) g/dL RDW 12.9 (11.5-15.5) % Plt Count 188 (150-450) k/uL Neutrophils % 68 % Lymphocytes % 23 % Monocytes % 6 % Eosinophils % 1 % Basophils % 0 % Neutrophils # 5.7 (1.3-7.7) k/uL Lymphocytes # 1.9 (1.0-4.8) k/uL Monocytes # 0.5 (0-1.0) k/uL Eosinophils # 0.1 (0-0.7) k/uL Basophils # 0.0 (0-0.2) k/uL PT 10.5 (9.0-12.0) sec INR 1.0 (<1.2) APTT 26.4 (22.0-30.0) sec D-Dimer <0.17 (<0.60) mg/L FEU Sodium 143 (137-145) mmol/L Potassium 4.1 (3.5-5.1) mmol/L Chloride 105 (98-107) mmol/L Carbon Dioxide 26 (22-30) mmol/L Anion Gap 12 mmol/L BUN 10 (9-20) mg/dL Creatinine 0.78 (0.66-1.25) mg/dL Est GFR (CKD-EPI)AfAm >90 (>60 ml/min/1.73 sqM) Est GFR (CKD-EPI)NonAf >90 (>60 ml/min/1.73 sqM) Glucose 106 H (74-99) mg/dL Calcium 10.2 (8.4-10.2) mg/dL Total Bilirubin 1.3 (0.2-1.3) mg/dL AST 20 (17-59) U/L ALT 13 L (21-72) U/L Alkaline Phosphatase 94 (38-126) U/L Troponin I (0.000-0.034) ng/mL Total Protein 8.1 (6.3-8.2) g/dL Albumin 5.2 H (3.5-5.0) g/dL 07/04/18 Range/Units 20:10 WBC (3.8-10.6) k/uL RBC (4.30-5.90) m/uL Hgb (13.0-17.5) gm/dL Hct (39.0-53.0) % MCV (80.0-100.0) fL MCH (25.0-35.0) pg MCHC (31.0-37.0) g/dL RDW (11.5-15.5) % Plt Count (150-450) k/uL Neutrophils % % Lymphocytes % % Monocytes % % Eosinophils % % Basophils % % Neutrophils # (1.3-7.7) k/uL Lymphocytes # (1.0-4.8) k/uL Monocytes # (0-1.0) k/uL Eosinophils # (0-0.7) k/uL Basophils # (0-0.2) k/uL PT (9.0-12.0) sec INR (<1.2) APTT (22.0-30.0) sec D-Dimer (<0.60) mg/L FEU Sodium (137-145) mmol/L Potassium (3.5-5.1) mmol/L Chloride (98-107) mmol/L Carbon Dioxide (22-30) mmol/L Anion Gap mmol/L BUN (9-20) mg/dL Creatinine (0.66-1.25) mg/dL Est GFR (CKD-EPI)AfAm (>60 ml/min/1.73 sqM) Est GFR (CKD-EPI)NonAf (>60 ml/min/1.73 sqM) Glucose (74-99) mg/dL Calcium (8.4-10.2) mg/dL Total Bilirubin (0.2-1.3) mg/dL AST (17-59) U/L ALT (21-72) U/L Alkaline Phosphatase (38-126) U/L Troponin I <0.012 (0.000-0.034) ng/mL Total Protein (6.3-8.2) g/dL Albumin (3.5-5.0) g/dL Disposition Clinical Impression: Atypical chest pain Disposition: HOME SELF-CARE Condition: Stable Instructions (If sedation given, give patient instructions): Chest Pain (ED) Additional Instructions: Patient to adhere to previously discussed treatment plan and will take medication(s) as directed. Patient to follow up with PCP in 1-2 days. Patient to return to ED if symptoms do not improve. Follow-up with primary care provider tomorrow. Return to ER if condition worsens in any way. Is patient prescribed a controlled substance at d/c from ED?: No Referrals: [facility] [Primary Care Provider] - 1-2 days
[2018-07-04 22:11] VITALS: BP 137/94; PULSE 77
== END 2018-07-04 22:10 | disposition home or self-care (01) ==
LOC: EC 19:09
DX: R07.89 Other chest pain (principal); R05 Cough; N64.4 Mastodynia; R09.89 Other specified symptoms and signs involving the circulatory and respiratory systems; F17.200 Nicotine dependence, unspecified, uncomplicated; Z88.6 Allergy status to analgesic agent; Z88.8 Allergy status to other drugs, medicaments and biological substances; Z79.890 Hormone replacement therapy
CPT/HCPCS: 36415; 71046; 80053; 84484; 85025; 85379; 85610; 85730; 93005; 99285

== ENCOUNTER 2020-05-05 18:34 | Emergency (ER) | payer MEDICARE, OTHER ==
[2020-05-05 19:35] LABS: Basophils % (A) 0 %; Eosinophils # (A) 0.1 k/uL (0-0.7); Eosinophils % (A) 2 %; HCT 47.2 % (39.0-53.0); HGB 15.7 gm/dL (13.0-17.5); Lymphocytes # (A) 1.2 k/uL (1.0-4.8); Lymphocytes % (A) 20 %; MCH 33.4 pg (25.0-35.0); MCHC 33.2 g/dL (31.0-37.0); MCV 100.7 fL (80.0-100.0); Mean Platelet Volume 6.6; Monocytes # (A) 0.3 k/uL (0-1.0); Monocytes % (A) 4 %; Neutrophils # (A) 4.5 k/uL (1.3-7.7); Neutrophils % (A) 73 %; Platelet Count 175 k/uL (150-450); RBC 4.69 m/uL (4.30-5.90); WBC 6.2 k/uL (3.8-10.6)
[2020-05-05 19:44] LABS: ALT 17 U/L (4-49); AST 21 U/L (17-59); African American GFR (CKD) >90 (>60 ml/min/1.73 sqM); Albumin 4.7 g/dL (3.5-5.0); Alkaline Phosphatase 74 U/L (38-126); Anion Gap 13 mmol/L; Blood Urea Nitrogen 12 mg/dL (9-20); Calcium 9.1 mg/dL (8.4-10.2); Carbon Dioxide 24 mmol/L (22-30); Chloride 106 mmol/L (98-107); Glucose 101 mg/dL (74-99); Magnesium 2.1 mg/dL (1.6-2.3); Non-African American GFR(CKD) >90 (>60 ml/min/1.73 sqM); Potassium 4.2 mmol/L (3.5-5.1); Sodium 143 mmol/L (137-145); Total Bilirubin 0.8 mg/dL (0.2-1.3); Total Protein 7.1 g/dL (6.3-8.2)
[2020-05-05 19:59] LABS: Alcohol 155 mg/dL
--- NOTE | 2020-05-05 20:10 | ED ---
General Adult HPI - General Chief complaint: Alcohol Stated complaint: Etoh Time Seen by Provider: 05/05/20 18:37 Source: patient, EMS Mode of arrival: EMS - History of Present Illness Initial comments: Dictation was produced using [employer] dictation software. please excuse any grammatical, word or spelling errors. This patient was cared for during a federal and state declared state of emergency secondary to Covid 19 Chief Complaint: 24-year-old male brought in for EtOH intoxication. History of Present Illness: She is 24-year-old male he has past medical history of alcohol abuse and marijuana use. He was picked up by EMS for being drunk at a bus stop. Patient denies any suicidal ideation. He states he has a drinking problem. States had multiple alcoholic beverages today. He has no other complaints at this time. The ROS documented in this emergency department record has been reviewed and confirmed by me. Those systems with pertinent positive or negative responses have been documented in the HPI. All other systems are other negative and/or noncontributory. PHYSICAL EXAM: General Impression: Alert and oriented x3, not in acute distress, inebriated HEENT: Normocephalic atraumatic, extra-ocular movements intact, pupils equal and reactive to light bilaterally, mucous membranes moist. Cardiovascular: Heart regular rate and rhythm Chest: Able to complete full sentences, no retractions, no tachypnea Abdomen: abdomen soft, non-tender, non-distended, no organomegaly Musculoskeletal: Pulses present and equal in all extremities, no peripheral edema Motor: no focal deficits noted Neurological: CN II-XII grossly intact, no focal motor or sensory deficits noted Skin: Intact with no visualized rashes Psych: Normal affect and mood ED course: 24-year-old male presents with acute EtOH intoxication. Vital signs upon arrival are within acceptable limits. Physical examination is benign. Patient is inebriated. Limited evaluation obtained. CBC unremarkable. Metabolic panel is negative. Serum alcohol is 155. Patient will be observed in emergency department pending clinical sobriety to discharge.. States he does not have a ride. Nurse was able to get in contact with patient's father. Patient's father will arrange for a cab. Patient ambulate around the emergency department with stable gait. He is coherent, tolerating oral intake and well- appearing. Patient be discharged home with cab. - Related Data Home Medications Medication Instructions Recorded Confirmed fluPHENAZine decanoate [Prolixin 12.5 mg IM QMONTH 05/05/20 05/05/20 Decanoate] Allergies Allergy/AdvReac Type Severity Reaction Status Date / Time aspirin Allergy Unknown Verified 05/05/20 20:27 haloperidol [From Haldol] Allergy Rash/Hives Verified 05/05/20 20:27 haloperidol lactate Allergy Rash/Hives Verified 05/05/20 20:27 [From Haldol] risperidone [From Risperdal] Allergy Unknown Verified 05/05/20 20:27 Review of Systems ROS Statement: Those systems with pertinent positive or pertinent negative responses have been documented in the HPI. ROS Other: All systems not noted in ROS Statement are negative. Past Medical History Past Medical History: Hypertension Additional Past Medical History / Comment(s): Scoliosis , stomach ulcers History of Any Multi-Drug Resistant Organisms: None Reported Past Surgical History: No Surgical Hx Reported, Hernia Repair Past Anesthesia/Blood Transfusion Reactions: No Reported Reaction Past Psychological History: Anxiety, Depression, Schizophrenia Smoking Status: Current every day smoker Past Alcohol Use History: Abuse Past Drug Use History: Marijuana Medical Decision Making - Lab Data Result diagrams: 05/05/20 19:29 05/05/20 19:29 Lab Results 05/05/20 05/05/20 Range/Units 19:29 19:29 WBC 6.2 (3.8-10.6) k/uL RBC 4.69 (4.30-5.90) m/uL Hgb 15.7 (13.0-17.5) gm/dL Hct 47.2 (39.0-53.0) % MCV 100.7 H (80.0-100.0) fL MCH 33.4 (25.0-35.0) pg MCHC 33.2 (31.0-37.0) g/dL RDW 13.0 (11.5-15.5) % Plt Count 175 (150-450) k/uL MPV 6.6 Neutrophils % 73 % Lymphocytes % 20 % Monocytes % 4 % Eosinophils % 2 % Basophils % 0 % Neutrophils # 4.5 (1.3-7.7) k/uL Lymphocytes # 1.2 (1.0-4.8) k/uL Monocytes # 0.3 (0-1.0) k/uL Eosinophils # 0.1 (0-0.7) k/uL Basophils # 0.0 (0-0.2) k/uL Sodium 143 (137-145) mmol/L Potassium 4.2 (3.5-5.1) mmol/L Chloride 106 (98-107) mmol/L Carbon Dioxide 24 (22-30) mmol/L Anion Gap 13 mmol/L BUN 12 (9-20) mg/dL Creatinine 1.09 (0.66-1.25) mg/dL Est GFR (CKD-EPI)AfAm >90 (>60 ml/min/1.73 sqM) Est GFR (CKD-EPI)NonAf >90 (>60 ml/min/1.73 sqM) Glucose 101 H (74-99) mg/dL Calcium 9.1 (8.4-10.2) mg/dL Magnesium 2.1 (1.6-2.3) mg/dL Total Bilirubin 0.8 (0.2-1.3) mg/dL AST 21 (17-59) U/L ALT 17 (4-49) U/L Alkaline Phosphatase 74 (38-126) U/L Total Protein 7.1 (6.3-8.2) g/dL Albumin 4.7 (3.5-5.0) g/dL Serum Alcohol 155 mg/dL Disposition Clinical Impression: Alcoholic intoxication Disposition: HOME SELF-CARE Condition: Fair Instructions (If sedation given, give patient instructions): Alcohol Intoxication (ED) Is patient prescribed a controlled substance at d/c from ED?: No Referrals: [facility] [Primary Care Provider] - 1-2 days Time of Disposition: 20:46
[2020-05-05 20:48] VITALS: RESP 18
[2020-05-05 21:33] VITALS: BP 122/72; PULSE 72; TEMP 98.9
== END 2020-05-05 21:32 | disposition home or self-care (01) ==
LOC: EC 18:34
DX: F10.129 Alcohol abuse with intoxication, unspecified (principal); F17.200 Nicotine dependence, unspecified, uncomplicated; I10 Essential (primary) hypertension; Y90.6 Blood alcohol level of 120-199 mg/100 ml; Z88.8 Allergy status to other drugs, medicaments and biological substances
CPT/HCPCS: 36415; 80053; 83735; 85025; 99284; G0480; 80320

== ENCOUNTER 2021-02-23 18:01 | Emergency (ER) | payer MEDICARE, OTHER ==
--- NOTE | 2021-02-23 18:47 | ED ---
General Adult HPI - General Chief complaint: Psychiatric Symptoms Stated complaint: Mental Health Time Seen by Provider: 02/23/21 18:29 Source: patient, RN notes reviewed, old records reviewed Mode of arrival: ambulatory Limitations: no limitations - History of Present Illness Initial comments: 19 sexual male presenting to the emergency department because he is homeless. Patient states that he was told by the ACT team to come to the emergency department and we would arrange housing for him. He is unable to give a name of who told him this or when it occurred. He has no physical complaints. She is not suicidal or homicidal. He is alert and oriented. He does admit to drinking 3 beers today. - Related Data Previous Rx's Medication Instructions Recorded Paliperidone IM [Invega Sustenna] 156 mg IM QMONTHLY #1 each 02/20/21 Allergies Allergy/AdvReac Type Severity Reaction Status Date / Time aspirin Allergy Unknown Verified 02/23/21 19:14 haloperidol [From Haldol] Allergy Rash/Hives Verified 02/23/21 19:14 haloperidol lactate Allergy Rash/Hives Verified 02/23/21 19:14 [From Haldol] risperidone [From Risperdal] Allergy MUSCLE Verified 02/23/21 19:14 SPASMS Review of Systems ROS Statement: Those systems with pertinent positive or pertinent negative responses have been documented in the HPI. ROS Other: All systems not noted in ROS Statement are negative. Past Medical History Past Medical History: No Reported History Additional Past Medical History / Comment(s): Scoliosis , stomach ulcers History of Any Multi-Drug Resistant Organisms: None Reported Past Surgical History: No Surgical Hx Reported, Hernia Repair Past Anesthesia/Blood Transfusion Reactions: No Reported Reaction Past Psychological History: Depression, Schizophrenia Smoking Status: Current every day smoker Past Alcohol Use History: Daily Past Drug Use History: Marijuana General Exam Limitations: no limitations General appearance: alert, in no apparent distress Head exam: Present: atraumatic, normocephalic Eye exam: Present: normal appearance, PERRL ENT exam: Present: normal exam Neck exam: Present: normal inspection. Absent: tenderness, meningismus Respiratory exam: Present: normal lung sounds bilaterally. Absent: respiratory distress, wheezes Cardiovascular Exam: Present: regular rate, normal rhythm GI/Abdominal exam: Present: soft. Absent: distended, tenderness, guarding Extremities exam: Present: normal inspection, normal capillary refill. Absent: pedal edema, joint swelling Neurological exam: Present: alert, oriented X3 Psychiatric exam: Present: normal affect, normal mood. Absent: homicidal ideation, suicidal ideation Skin exam: Present: warm, dry, intact. Absent: cyanosis, diaphoretic Course Vital Signs 02/23/21 02/23/21 02/23/21 18:25 19:19 20:27 Temperature 97.7 F 97.8 F Pulse Rate 98 79 70 Respiratory 18 18 16 Rate Blood Pressure 147/108 119/78 137/68 O2 Sat by Pulse 98 96 96 Oximetry Medical Decision Making - Medical Decision Making 25-year-old male presented with chief complaint of being homeless. Patient has no physical complaints, he is not suicidal or homicidal. He is allowed to rest in the emergency department, he is given food. We did attempt to contact multiple shelters as well as the patient's father. There [place] no [place] available, patient's father does not have room for the patient. The act team had been contacted who will attempt to arrange [place] for this patient the morning. Disposition Clinical Impression: Homelessness Disposition: HOME SELF-CARE Condition: Fair Additional Instructions: Please follow up with community mental health and the ACT time. Is patient prescribed a controlled substance at d/c from ED?: No Referrals: None,Stated [Primary Care Provider] - 1-2 days Inder Miller [STAFF PHYSICIAN] - 1-2 days Time of Disposition: 21:01
[2021-02-24 00:17] VITALS: TEMP 97.9
[2021-02-24 02:40] VITALS: RESP 16
[2021-02-24 06:25] VITALS: BP 127/71; PULSE 70
== END 2021-02-24 06:39 | disposition home or self-care (01) ==
LOC: EC 18:01
DX: F17.200 Nicotine dependence, unspecified, uncomplicated (principal); Z59.00 Homelessness unspecified; Z88.6 Allergy status to analgesic agent; Z88.8 Allergy status to other drugs, medicaments and biological substances
CPT/HCPCS: 99283

== ENCOUNTER 2021-03-01 19:25 | Emergency (ER) | payer MEDICARE, OTHER ==
[2021-03-01 19:34] VITALS: BP 111/64; PULSE 98; RESP 18; TEMP 97.9
--- NOTE | 2021-03-01 19:43 | ED ---
General Adult HPI - General Source: patient, EMS Mode of arrival: EMS Limitations: no limitations <Man Wells - Last Filed: 03/01/21 19:43> <Hernan Bach - Last Filed: 03/02/21 02:12> - General Chief complaint: Alcohol Stated complaint: ETOH Time Seen by Provider: 03/01/21 19:28 - History of Present Illness Initial comments: Dictation was produced using [employer] dictation software. please excuse any grammatical, word or spelling errors. Chief Complaint: 25-year-old male presents emergency department for alcohol intoxication. History of Present Illness: Patient 25-year-old male presents emergency department for alcohol intoxication. Patient states he was drinking too much. He was at his family members house having several alcoholic beverages. He felt like he was too drunk and called EMS. Patient states that his toes feel weird and requested that I take off his sock. States that his toes feel better without his socks on. Patient states he drinks beer on a regular basis usually not this much. Patient has no other complaints at this time. The ROS documented in this emergency department record has been reviewed and confirmed by me. Those systems with pertinent positive or negative responses have been documented in the HPI. All other systems are other negative and/or noncontributory. PHYSICAL EXAM: General Impression: Alert and oriented x3, not in acute distress, inebriated HEENT: Normocephalic atraumatic, extra-ocular movements intact, pupils equal and reactive to light bilaterally, mucous membranes moist. Cardiovascular: Heart regular rate and rhythm Chest: Able to complete full sentences, no retractions, no tachypnea Abdomen: abdomen soft, non-tender, non-distended, no organomegaly Musculoskeletal: Pulses present and equal in all extremities, no peripheral edema Motor: no focal deficits noted Neurological: CN II-XII grossly intact, no focal motor or sensory deficits noted Skin: Intact with no visualized rashes Psych: Normal affect and mood ED course: 35-year-old male presents to the emergency department for alcohol intoxication. Vital signs upon arrival are within acceptable limits. Patient intoxicated. Physical examination is benign. Patient in no acute distress. Patient smiling. (Man Wells) - Related Data Home Medications Medication Instructions Recorded Confirmed Paliperidone IM [Invega Sustenna] 156 mg IM DIRECTED 03/01/21 03/01/21 Allergies Allergy/AdvReac Type Severity Reaction Status Date / Time aspirin Allergy Unknown Verified 03/01/21 19:31 haloperidol [From Haldol] Allergy Rash/Hives Verified 03/01/21 19:31 haloperidol lactate Allergy Rash/Hives Verified 03/01/21 19:31 [From Haldol] risperidone [From Risperdal] Allergy MUSCLE Verified 03/01/21 19:31 SPASMS Review of Systems ROS Other: All systems not noted in ROS Statement are negative. <Man Wells - Last Filed: 03/01/21 19:43> ROS Other: All systems not noted in ROS Statement are negative. <Hernan Bach - Last Filed: 03/02/21 02:12> ROS Statement: Those systems with pertinent positive or pertinent negative responses have been documented in the HPI. Past Medical History Past Medical History: No Reported History Additional Past Medical History / Comment(s): Scoliosis , stomach ulcers History of Any Multi-Drug Resistant Organisms: None Reported Past Surgical History: No Surgical Hx Reported, Hernia Repair Past Anesthesia/Blood Transfusion Reactions: No Reported Reaction Past Psychological History: Depression, Schizophrenia Smoking Status: Current every day smoker Past Alcohol Use History: Daily Past Drug Use History: Cocaine, Marijuana <Man Wells - Last Filed: 03/01/21 19:43> General Exam Limitations: no limitations <Man Wells - Last Filed: 03/01/21 19:43> General appearance: alert, in no apparent distress Head exam: Present: atraumatic, normocephalic, normal inspection Eye exam: Present: normal appearance, PERRL, EOMI. Absent: scleral icterus, conjunctival injection, periorbital swelling ENT exam: Present: normal exam, mucous membranes moist Neck exam: Present: normal inspection. Absent: tenderness, meningismus, lymphadenopathy Respiratory exam: Present: normal lung sounds bilaterally. Absent: respiratory distress, wheezes, rales, rhonchi, stridor Cardiovascular Exam: Present: regular rate, normal rhythm, normal heart sounds. Absent: systolic murmur, diastolic murmur, rubs, gallop, clicks GI/Abdominal exam: Present: soft, normal bowel sounds. Absent: distended, tenderness, guarding, rebound, rigid Extremities exam: Present: normal inspection, full ROM, normal capillary refill. Absent: tenderness, pedal edema, joint swelling, calf tenderness Back exam: Present: normal inspection Neurological exam: Present: alert, oriented X3, CN II-XII intact Psychiatric exam: Present: normal affect, normal mood Skin exam: Present: warm, dry, intact, normal color. Absent: rash <Hernan Bach - Last Filed: 03/02/21 02:12> Course <Hernan Bach - Last Filed: 03/02/21 02:12> Vital Signs 03/01/21 19:30 Temperature 97.9 F Pulse Rate 98 Respiratory 18 Rate Blood Pressure 111/64 O2 Sat by Pulse 97 Oximetry - Reevaluation(s) Reevaluation #1: 03/02/21 02:10 Medical record is reviewed (Hernan Bach) Reevaluation #2: 03/02/21 02:10 Patient currently awake alert walking around, asking for discharge (Hernan Bach) Medical Decision Making <Hernan Bach - Last Filed: 03/02/21 02:12> - Medical Decision Making 25 male with acute alcohol intoxication, patient currently no longer intoxicated not homicidal or suicidal and can be discharged home (Hernan Bach) Disposition <Man Wells - Last Filed: 03/01/21 19:43> Is patient prescribed a controlled substance at d/c from ED?: No <Hernan Bach - Last Filed: 03/02/21 02:12> Clinical Impression: Alcoholic intoxication Disposition: HOME SELF-CARE Condition: Good Instructions (If sedation given, give patient instructions): Alcohol Intoxication (ED) Referrals: None,Stated [Primary Care Provider] - 1-2 days
== END 2021-03-02 02:20 | disposition home or self-care (01) ==
LOC: EC 19:25
DX: F10.129 Alcohol abuse with intoxication, unspecified (principal); F17.200 Nicotine dependence, unspecified, uncomplicated; Z88.6 Allergy status to analgesic agent; Z88.8 Allergy status to other drugs, medicaments and biological substances
CPT/HCPCS: 99284

== ENCOUNTER → 2021-03-30 | Outpatient (CLI) | payer MEDICARE, OTHER ==
[2021-03-30 16:55] LABS: African American GFR (CKD) 119.9 (60.0-200.0); Blood Urea Nitrogen 15.6 mg/dL (9.0-27.0); Non-African American GFR(CKD) 103.4 (60.0-200.0); T4, Free (Free Thyroxine) 1.36 ng/dL (0.800-1.800)
[2021-03-30 18:21] LABS: Lithium 0.6 mmol/L (0.50-1.20)
== END | disposition home or self-care (01) ==
LOC: LABWHC1 07:44
PROVIDERS: ATTEND Psychiatry & Neurology Psychiatry
DX: F25.0 Schizoaffective disorder, bipolar type (principal)
CPT/HCPCS: 36415; 80178; 82565; 84439; 84443; 84520

== ENCOUNTER 2021-04-13 16:05 | Emergency (ER) | payer MEDICARE, OTHER ==
[2021-04-13 16:44] VITALS: BP 112/65; PULSE 77; RESP 18; TEMP 98.2
[2021-04-13] MEDS ORDERED: diphenhydrAMINE 50 MG/ML 1 ML VIAL IM STA (18:32)
--- NOTE | 2021-04-13 18:40 | ED ---
General Adult HPI - General Chief complaint: Recheck/Abnormal Lab/Rx Stated complaint: Mental health Time Seen by Provider: 04/13/21 17:58 Source: patient Mode of arrival: ambulatory Limitations: no limitations - History of Present Illness Initial comments: Patient is a 25-year-old male has medical history of schizoaffective disorder, anxiety, depression presenting with anxiety and irritability. Patient's daily medications include Cogentin 2 mg twice a day Ativan 2 mg 3 times a day and propranolol 20 mg 3 times a day. The mental health nurse at his facility did not give him his Ativan or Cogentin today until 3:00pm due to consuming alcohol the night prior. Today he has been experiencing anxiety, palpitations, tremor throat tightness for the last several hours. The throat tightness has since resolved, but the patient is still repeatedly pacing around the room and his hands are trembling. She isolated current medications that is not accompanied by chest pain or shortness of breath. Patient denies homicidal or suicidal thoughts, hallucinations, vision changes, ANDUJAR, fever, chills, abdominal pain, nausea, vomiting, dysphagia. - Related Data Previous Rx's Medication Instructions Recorded Nicotine 14Mg/24Hr Patch [Habitrol] 1 patch TRANSDERM DAILY 30 Days 03/09/21 patch Paliperidone IM [Invega Sustenna] 234 mg IM QMONTHLY #1 each 03/09/21 Allergies Allergy/AdvReac Type Severity Reaction Status Date / Time aspirin Allergy Unknown Verified 04/13/21 16:45 haloperidol [From Haldol] Allergy Rash/Hives Verified 04/13/21 16:45 haloperidol lactate Allergy Rash/Hives Verified 04/13/21 16:45 [From Haldol] risperidone [From Risperdal] Allergy MUSCLE Verified 04/13/21 16:45 SPASMS Review of Systems ROS Statement: Those systems with pertinent positive or pertinent negative responses have been documented in the HPI. ROS Other: All systems not noted in ROS Statement are negative. Past Medical History Past Medical History: No Reported History Additional Past Medical History / Comment(s): Schizoaffective Disorder; Psychosis; Alice; Scoliosis , stomach ulcers History of Any Multi-Drug Resistant Organisms: None Reported Past Surgical History: No Surgical Hx Reported, Hernia Repair Past Anesthesia/Blood Transfusion Reactions: No Reported Reaction Past Psychological History: Depression, Schizophrenia Smoking Status: Current every day smoker Past Alcohol Use History: Daily Past Drug Use History: Marijuana General Exam Limitations: no limitations General appearance: alert, anxious Head exam: Present: atraumatic, normocephalic, normal inspection Eye exam: Present: normal appearance, PERRL, EOMI. Absent: scleral icterus, conjunctival injection, periorbital swelling ENT exam: Present: normal exam, mucous membranes moist Neck exam: Present: normal inspection Respiratory exam: Present: normal lung sounds bilaterally. Absent: respiratory distress, wheezes, rales, rhonchi, stridor Cardiovascular Exam: Present: regular rate, normal rhythm, normal heart sounds. Absent: systolic murmur, diastolic murmur, rubs, gallop, clicks Neurological exam: Present: alert, oriented X3, CN II-XII intact Expanded Eye Response: (4) open spontaneously Motor Response: (6) obeys commands Verbal Response: (5) oriented Kendra Total: 15 Psychiatric exam: Present: agitated, anxious. Absent: homicidal ideation, suicidal ideation Skin exam: Present: warm, dry, intact, normal color. Absent: rash Course Vital Signs 04/13/21 16:40 Temperature 98.2 F Pulse Rate 77 Respiratory 18 Rate Blood Pressure 112/65 O2 Sat by Pulse 97 Oximetry Medical Decision Making - Medical Decision Making Patient is a 25-year-old male presenting with chief complaint anxiety and irritability. Patient states he did not receive his usual dose of Ativan and Cogentin today due to consuming alcohol tonight prior. Symptoms have been pers istent for a few hours and anxiety, tremor, palpitations, gait shuffling, and throat tightness. On presentation patient stated that throat tightness and palpitations had completely resolved but his anxiety and tremor still present. No suicidal or homicidal ideation. During exam patient is pacing and hands are trembling. Pt was given IV Benadryl and Cogentin, which he confirmed helped resolve his symptoms. EKG was unremarkable. Lab work is unremarkable. Advised patient to follow up with psychiatrist in 1-2 days to address his antipsychotic medication and dosage as this is likely the cause of his symptoms. 0 questions. Educated on return parameters. Patient conveyed verbal understanding and agreed to the plan. I discussed this case on my attending Dr. Baum. - Lab Data Result diagrams: 04/13/21 18:54 04/13/21 18:54 Lab Results 04/13/21 04/13/2122 Range/Units 18:54 18:54 18:54 WBC 7.1 (3.8-10.6) k/uL RBC 4.56 (4.30-5.90) m/uL Hgb 15.8 (13.0-17.5) gm/dL Hct 45.3 (39.0-53.0) % MCV 99.4 D (80.0-100.0) fL MCH 34.6 (25.0-35.0) pg MCHC 34.8 (31.0-37.0) g/dL RDW 12.7 (11.5-15.5) % Plt Count 298 (150-450) k/uL MPV 6.6 Neutrophils % 58 % Lymphocytes % 32 % Monocytes % 5 % Eosinophils % 3 % Basophils % 1 % Neutrophils # 4.2 (1.3-7.7) k/uL Lymphocytes # 2.3 (1.0-4.8) k/uL Monocytes # 0.3 (0-1.0) k/uL Eosinophils # 0.2 (0-0.7) k/uL Basophils # 0.1 (0-0.2) k/uL Sodium 138 (137-145) mmol/L Potassium 3.8 (3.5-5.1) mmol/L Chloride 105 (98-107) mmol/L Carbon Dioxide 21 L (22-30) mmol/L Anion Gap 12 mmol/L BUN 13 (9-20) mg/dL Creatinine 0.91 (0.66-1.25) mg/dL Est GFR (CKD-EPI)AfAm >90 (>60 ml/min/1.73 sqM) Est GFR (CKD-EPI)NonAf >90 (>60 ml/min/1.73 sqM) Glucose 128 H (74-99) mg/dL Calcium 9.3 (8.4-10.2) mg/dL Magnesium 2.0 (1.6-2.3) mg/dL Total Bilirubin 1.1 (0.2-1.3) mg/dL AST 55 (17-59) U/L ALT 101 H (4-49) U/L Alkaline Phosphatase 92 (38-126) U/L Total Protein 7.6 (6.3-8.2) g/dL Albumin 5.1 H (3.5-5.0) g/dL Salicylates <1.0 mg/dL Urine Opiates Screen (Negative) Urine Methadone Screen (Negative) Ur Propoxyphene Screen (Negative) Acetaminophen <10.0 ug/mL Urine Barbiturates (Negative) Ur Phencyclidine Scrn (Negative) Ur Amphetamine Screen (Negative) U Benzodiazepines Scrn (Negative) Urine Cocaine Screen (Negative) U Cannabinoids Screen (Negative) Urine Alcohol (Negative) 04/13/21 Range/Units 19:29 WBC (3.8-10.6) k/uL RBC (4.30-5.90) m/uL Hgb (13.0-17.5) gm/dL Hct (39.0-53.0) % MCV (80.0-100.0) fL MCH (25.0-35.0) pg MCHC (31.0-37.0) g/dL RDW (11.5-15.5) % Plt Count (150-450) k/uL MPV Neutrophils % % Lymphocytes % % Monocytes % % Eosinophils % % Basophils % % Neutrophils # (1.3-7.7) k/uL Lymphocytes # (1.0-4.8) k/uL Monocytes # (0-1.0) k/uL Eosinophils # (0-0.7) k/uL Basophils # (0-0.2) k/uL Sodium (137-145) mmol/L Potassium (3.5-5.1) mmol/L Chloride (98-107) mmol/L Carbon Dioxide (22-30) mmol/L Anion Gap mmol/L BUN (9-20) mg/dL Creatinine (0.66-1.25) mg/dL Est GFR (CKD-EPI)AfAm (>60 ml/min/1.73 sqM) Est GFR (CKD-EPI)NonAf (>60 ml/min/1.73 sqM) Glucose (74-99) mg/dL Calcium (8.4-10.2) mg/dL Magnesium (1.6-2.3) mg/dL Total Bilirubin (0.2-1.3) mg/dL AST (17-59) U/L ALT (4-49) U/L Alkaline Phosphatase (38-126) U/L Total Protein (6.3-8.2) g/dL Albumin (3.5-5.0) g/dL Salicylates mg/dL Urine Opiates Screen Negative (Negative) Urine Methadone Screen Negative (Negative) Ur Propoxyphene Screen Negative (Negative) Acetaminophen ug/mL Urine Barbiturates Negative (Negative) Ur Phencyclidine Scrn Negative (Negative) Ur Amphetamine Screen Negative (Negative) U Benzodiazepines Scrn Negative (Negative) Urine Cocaine Screen Negative (Negative) U Cannabinoids Screen Negative (Negative) Urine Alcohol Negative (Negative) When compared to previous EKG there are: no significant change Interpretation: no acute changes Disposition Clinical Impression: Akathisia Disposition: HOME SELF-CARE Condition: Good Instructions (If sedation given, give patient instructions): Extrapyramidal Sy mptoms (ED) Additional Instructions: Follow-up with psychiatrist in 1-2 days. Report back to ER with worsening symptoms or new onset alarming symptoms such as chest pain, shortness of breath, thoughts of harming herself or others, hallucinations. Is patient prescribed a controlled substance at d/c from ED?: No Referrals: [facility] [Primary Care Provider] - 1-2 days Time of Disposition: 20:31
[2021-04-13] MEDS ORDERED: diphenhydrAMINE 50 MG/ML 1 ML VIAL IVP STA (18:55)
[2021-04-13] MEDS ORDERED: BENZTROPINE 2 MG/2 ML AMP IV STA (19:03)
[2021-04-13 19:05] LABS: Basophils # (A) 0.1 k/uL (0-0.2); Basophils % (A) 1 %; Eosinophils # (A) 0.2 k/uL (0-0.7); Eosinophils % (A) 3 %; HCT 45.3 % (39.0-53.0); HGB 15.8 gm/dL (13.0-17.5); Lymphocytes # (A) 2.3 k/uL (1.0-4.8); Lymphocytes % (A) 32 %; MCH 34.6 pg (25.0-35.0); MCHC 34.8 g/dL (31.0-37.0); Mean Platelet Volume 6.6; Monocytes # (A) 0.3 k/uL (0-1.0); Monocytes % (A) 5 %; Neutrophils # (A) 4.2 k/uL (1.3-7.7); Neutrophils % (A) 58 %; Platelet Count 298 k/uL (150-450); RBC 4.56 m/uL (4.30-5.90); RDW 12.7 % (11.5-15.5); WBC 7.1 k/uL (3.8-10.6)
[2021-04-13 19:10] LABS: MCV 99.4 fL (80.0-100.0)
[2021-04-13 19:17] LABS: ALT 101 U/L (4-49); AST 55 U/L (17-59); African American GFR (CKD) >90 (>60 ml/min/1.73 sqM); Albumin 5.1 g/dL (3.5-5.0); Alkaline Phosphatase 92 U/L (38-126); Anion Gap 12 mmol/L; Blood Urea Nitrogen 13 mg/dL (9-20); Calcium 9.3 mg/dL (8.4-10.2); Carbon Dioxide 21 mmol/L (22-30); Chloride 105 mmol/L (98-107); Glucose 128 mg/dL (74-99); Non-African American GFR(CKD) >90 (>60 ml/min/1.73 sqM); Potassium 3.8 mmol/L (3.5-5.1); Sodium 138 mmol/L (137-145); Total Bilirubin 1.1 mg/dL (0.2-1.3); Total Protein 7.6 g/dL (6.3-8.2)
[2021-04-13 19:47] LABS: Acetaminophen <10.0 ug/mL; Salicylate <1.0 mg/dL
[2021-04-13 23:36] LABS: Urine Alcohol Negative (Negative); Urine Barbiturate Negative (Negative); Urine Cocaine Negative (Negative); Urine Methadone Negative (Negative); Urine Opiates Negative (Negative); Urine Phencyclidine Negative (Negative)
== END 2021-04-13 20:52 | disposition home or self-care (01) ==
LOC: EC 16:05
DX: G25.71 Drug induced akathisia (principal); F17.200 Nicotine dependence, unspecified, uncomplicated; Z88.6 Allergy status to analgesic agent; Z88.8 Allergy status to other drugs, medicaments and biological substances
CPT/HCPCS: 36415; 93005; 80053; 83735; 85025; 80306; 80143; 80179; 99283; 96374; 96375; J1200; J0515

== ENCOUNTER 2022-07-09 19:15 | Emergency (ER) | payer MEDICARE, OTHER ==
[2022-07-09 19:21] VITALS: TEMP 97.8
[2022-07-09] MEDS ORDERED: KETOROLAC 15 MG/ML 1 ML VIAL IM STA (19:39)
--- NOTE | 2022-07-09 19:54 | ED ---
Extremity Problem HPI - General Chief complaint: Extremity Problem,Nontraumatic Stated complaint: LEFT FOOT NUMBNESS Time Seen by Provider: 07/09/22 19:24 Source: patient, RN notes reviewed, old records reviewed Mode of arrival: ambulatory Limitations: no limitations - History of Present Illness Initial comments: 26-year-old disheveled male presents to the emergency room with complaints of numbness to the toes of his right foot for 3 days. Denies pain. Denies any injuries. No previous history of same. Denies any chronic back pain. No bowel or bladder incontinence. Denies any fevers. Has been able to ambulate. Patient states he lives at home. History of psychosis and schizophrenia. MD Complaint: other (numbness to toes of right foot) Location: right, toe History of Same: No Radiation: none Severity scale (1-10): 0 Consistency: constant Improves with: nothing Worsens with: nothing Associated Symptoms: denies other symptoms - Related Data Previous Rx's Medication Instructions Recorded Nicotine 14Mg/24Hr Patch [Habitrol] 1 patch TRANSDERM DAILY 30 Days 03/09/21 patch Paliperidone IM [Invega Sustenna] 234 mg IM QMONTHLY #1 each 03/09/21 Allergies Allergy/AdvReac Type Severity Reaction Status Date / Time aspirin Allergy Unknown Verified 07/09/22 19:21 haloperidol [From Haldol] Allergy Rash/Hives Verified 07/09/22 19:21 haloperidol lactate Allergy Rash/Hives Verified 07/09/22 19:21 [From Haldol] risperidone [From Risperdal] Allergy MUSCLE Verified 07/09/22 19:21 SPASMS Review of Systems ROS Statement: Those systems with pertinent positive or pertinent negative responses have been documented in the HPI. ROS Other: All systems not noted in ROS Statement are negative. Past Medical History Past Medical History: No Reported History Additional Past Medical History / Comment(s): Schizoaffective Disorder; Psychosis; Alice; Scoliosis , stomach ulcers History of Any Multi-Drug Resistant Organisms: None Reported Past Surgical History: Hernia Repair Past Anesthesia/Blood Transfusion Reactions: No Reported Reaction Past Psychological History: Depression, Schizophrenia Smoking Status: Current every day smoker Past Alcohol Use History: Daily Past Drug Use History: Marijuana General Exam Limitations: no limitations General appearance: alert, in no apparent distress Head exam: Present: atraumatic Eye exam: Present: normal appearance. Absent: scleral icterus, conjunctival injection, periorbital swelling Neck exam: Present: full ROM. Absent: tenderness, meningismus Respiratory exam: Absent: respiratory distress, accessory muscle use Cardiovascular Exam: Present: regular rate Extremities exam: Present: full ROM, normal capillary refill. Absent: tenderness, pedal edema, calf tenderness Right Knee exam: Present: normal inspection, full ROM, full knee extension. Absent: tenderness, swelling, ecchymosis, deformity, crepitus, dislocation, effusion, pain/laxity with valgus, pain/laxity with varus Lower Leg exam: Present: full ROM. Absent: tenderness, swelling, Homans' sign Ankle exam: Present: normal inspection, full ROM. Absent: tenderness, swelling Foot/Toe exam: Present: full ROM. Absent: tenderness, swelling, ecchymosis, deformity, crepitus, dislocation, erythema, calcaneal tenderness, tenderness at base of 5th metatarsal Neurovascular tendon exam: Present: no vascular compromise. Absent: extremity cold to touch, pallor, foot drop Gait: observed and normal. negative: observed and limited by pain, unable to bear weight Back exam: Present: full ROM. Absent: tenderness, CVA tenderness (R), CVA tenderness (L), paraspinal tenderness, vertebral tenderness, rash noted Neurological exam: Present: alert, oriented X3, normal gait Psychiatric exam: Present: normal affect, normal mood Skin exam: Present: warm, dry, normal color. Absent: cyanosis, diaphoretic, petechiae, pallor, mottled Course Vital Signs 07/09/22 07/09/22 19:18 20:07 Temperature 97.8 F Pulse Rate 78 91 Respiratory 16 20 Rate Blood Pressure 125/82 132/75 O2 Sat by Pulse 97 96 Oximetry Medical Decision Making - Medical Decision Making Was pt. sent in by a medical professional or institution (, PA, YARDAGE CONTROL OPERATOR FORMING, urgent care, hospital, or usp...) When possible be specific @ -No Did you speak to anyone other than the patient for history (EMS, parent, family, police, friend...)? What history was obtained from this source @ -No Did you review nursing and triage notes (agree or disagree)? Why? @ -I reviewed and agree with nursing and triage notes Were old charts reviewed (outside hosp., previous admission, EMS record, old EKG, old radiological studies, urgent care reports/EKG's, usp records)? Report findings @ -No old charts were reviewed Differential Diagnosis (chest pain, altered mental status, abdominal pain women, abdominal pain men, vaginal bleeding, weakness, fever, dyspnea, syncope, headache, dizziness, GI bleed, back pain, seizure, CVA, palpatations, mental health, musculoskeletal)? @ -Radiculopathy, neuropathy, fracture, sprain, contusion EKG interpreted by me (3pts min.). @ -n/a X-rays interpreted by me (1pt min.). @ -None done CT interpreted by me (1pt min.). @ -None done U/S interpreted by me (1pt. min.). @ -None done What testing was considered but not performed or refused? (CT, X-rays, U/S, labs)? Why? @ -None What meds were considered but not given or refused? Why? @ -None Did you discuss the management of the patient with other professionals (professionals i.e. , PA, YARDAGE CONTROL OPERATOR FORMING, lab, RT, psych nurse, older adult social work specialist, research development manager, teacher, chief marketing officer, briefcase sewer)? Give summary @ -No Was smoking cessation discussed for >3mins.? @ -No Was critical care preformed (if so, how long)? @ -No Were there social determinants of health that impacted care today? How? (Homelessness, low income, unemployed, alcoholism, drug addiction, transportation, low edu. Level, literacy, decrease access to med. care, [facility], rehab)? @ -No Was there de-escalation of care discussed even if they declined (Discuss DNR or withdrawal of care, Hospice)? DNR status @ -No What co-morbidities impacted this encounter? (DM, HTN, Smoking, COPD, CAD, Can cer, CVA, ARF, Chemo, Hep., AIDS, mental health diagnosis, sleep apnea, morbid obesity)? @ -Schizophrenia Was patient admitted / discharged? Hospital course, mention meds given and route, prescriptions, significant lab abnormalities, going to OR and other pertinent info. @ -Discharged. 26-year-old disheveled male presents to the emergency room with complaints of numbness to the toes of his right foot for 3 days. Denies pain or injuries. No previous history of same. Denies any back pain or bowel or bladder incontinence. No fevers. Has been able to ambulate. Patient is disheveled and dirty with thick dirt between toes and across his lower back. States that he does live at home and is not homeless. Vital signs are stable. On physical exam patient is able to ambulate with no difficulty. Stand with all his weight on his left and right legs separately. No evidence of foot drop. Achilles tendon is intact. Sensation intact. He denies any bowel or bladder incontinence. No injuries. This is likely radiculopathy therefore patient was given a shot of Toradol. Directed to follow-up with his primary care doctor for continuation of care if no resolution with Tylenol and Motrin. Case discussed with Dr. Rodriguez History of psychosis and schizophrenia. Undiagnosed new problem with uncertain prognosis? @ -No Drug Therapy requiring intensive monitoring for toxicity (Heparin, Nitro, Insulin, Cardizem)? @ -No Were any procedures done? @ -No Diagnosis/symptom? @ -Paresthesias right toes Acute, or Chronic, or Acute on Chronic? @ -Acute Uncomplicated (without systemic symptoms) or Complicated (systemic symptoms)? @ -default Side effects of treatment? @ -No Exacerbation, Progression, or Severe Exacerbation? @ -No Poses a threat to life or bodily function? How? (Chest pain, [place], [place], pneumonia, PE, COPD, DKA, ARF, appy, cholecystitis, CVA, Diverticulitis, Homicidal, Suicidal, threat to staff... and all critical care pts) @ -No Disposition Clinical Impression: Paresthesia of right foot Disposition: HOME SELF-CARE Condition: Good Instructions (If sedation given, give patient instructions): Arthralgia (ED) Additional Instructions: Take Motrin every 6-8 hours as needed for discomfort. Follow-up with your primary care doctor for continuation of care. Is patient prescribed a controlled substance at d/c from ED?: No Referrals: None,Stated [Primary Care Provider] - 1-2 days Time of Disposition: 19:46
[2022-07-09 20:11] VITALS: BP 132/75; PULSE 91; RESP 20
== END 2022-07-09 20:11 | disposition home or self-care (01) ==
LOC: EC 19:15
DX: R20.2 Paresthesia of skin (principal); F17.200 Nicotine dependence, unspecified, uncomplicated; F12.90 Cannabis use, unspecified, uncomplicated; Z88.6 Allergy status to analgesic agent; Z88.8 Allergy status to other drugs, medicaments and biological substances
CPT/HCPCS: 99283; 96372; J1885

== ENCOUNTER 2022-07-15 22:20 | Emergency (ER) | payer MEDICARE, OTHER ==
[2022-07-15 22:28] VITALS: PULSE 63; RESP 16; TEMP 97.9
[2022-07-15] MEDS ORDERED: LORazepam 1 MG TAB PO STA ×2 (22:45→23:41)
--- NOTE | 2022-07-15 23:23 | ED ---
Anxiety HPI - General Chief Complaint: Anxiety Stated Complaint: Mental Health Time Seen by Provider: 07/15/22 22:25 Source: patient Mode of arrival: EMS - History of Present Illness Initial Comments: 26-year-old male past medical history of schizoaffective disorder who presents to the emergency room reporting anxiety. States he has a history of anxiety however does not take any medications. He has mentioned to his psychiatrist several times that he would like to take something for anxiety however has not been prescribed any medications. Reports that today he has had anxiety symptoms for the past 5 hours. Cannot get himself to calm down. He is having anxiousness, sweating with some shortness of breath. Due to his symptoms he did call EMS to bring him to the hospital. He denies that he took anything for the anxiety. No chest pain. No vomiting. No other alleviating, precipitating or modifying factors - Related Data Home Medications: Previous Rx's Medication Instructions Recorded Nicotine 14Mg/24Hr Patch [Habitrol] 1 patch TRANSDERM DAILY 30 Days 03/09/21 patch Paliperidone IM [Invega Sustenna] 234 mg IM QMONTHLY #1 each 03/09/21 hydrOXYzine HCL [Atarax] 50 mg PO QID PRN #30 tab 07/16/22 Allergies/Adverse Reactions: Allergies Allergy/AdvReac Type Severity Reaction Status Date / Time aspirin Allergy Unknown Verified 07/15/22 22:22 haloperidol [From Haldol] Allergy Rash/Hives Verified 07/15/22 22:22 haloperidol lactate Allergy Rash/Hives Verified 07/15/22 22:22 [From Haldol] risperidone [From Risperdal] Allergy MUSCLE Verified 07/15/22 22:22 SPASMS Review of Systems ROS Statement: Those systems with pertinent positive or pertinent negative responses have been documented in the HPI. ROS Other: All systems not noted in ROS Statement are negative. Past Medical History Past Medical History: No Reported History Additional Past Medical History / Comment(s): Schizoaffective Disorder; Psychosis; Alice; Scoliosis , stomach ulcers History of Any Multi-Drug Resistant Organisms: None Reported Past Surgical History: Hernia Repair Past Anesthesia/Blood Transfusion Reactions: No Reported Reaction Past Psychological History: Depression, Schizophrenia Smoking Status: Current every day smoker Past Alcohol Use History: Daily Past Drug Use History: Marijuana General Exam Limitations: no limitations General appearance: alert, anxious Head exam: Present: atraumatic, normocephalic, normal inspection Eye exam: Present: normal appearance, PERRL, EOMI. Absent: scleral icterus, conjunctival injection, periorbital swelling ENT exam: Present: normal exam, mucous membranes moist Neck exam: Present: normal inspection. Absent: tenderness, meningismus, lymphadenopathy Respiratory exam: Present: normal lung sounds bilaterally. Absent: respiratory distress, wheezes, rales, rhonchi, stridor Cardiovascular Exam: Present: regular rate, normal rhythm, normal heart sounds. Absent: systolic murmur, diastolic murmur, rubs, gallop, clicks GI/Abdominal exam: Present: soft, normal bowel sounds. Absent: distended, tenderness, guarding, rebound, rigid Extremities exam: Present: normal inspection, full ROM, normal capillary refill. Absent: tenderness, pedal edema, joint swelling, calf tenderness Back exam: Present: normal inspection Neurological exam: Present: alert, oriented X3, CN II-XII intact Psychiatric exam: Present: normal affect, normal mood Skin exam: Present: warm, dry, intact, normal color. Absent: rash Course Vital Signs 07/15/22 07/16/22 22:23 00:50 Temperature 97.9 F Pulse Rate 63 63 Respiratory 16 16 Rate Blood Pressure 177/88 138/68 O2 Sat by Pulse 98 98 Oximetry Medical Decision Making - Medical Decision Making Was pt. sent in by a medical professional or institution (, PA, FABRIC PATTERN GRADER, urgent care, hospital, or detention...) When possible be specific @ -No Did you speak to anyone other than the patient for history (EMS, parent, family, police, friend...)? What history was obtained from this source @ -No Did you review nursing and triage notes (agree or disagree)? Why? @ -[I reviewed and disagree with nursing. Patient denies taking any medications that are not prescribed to him. He also does not report the n umbness and tingling in his foot. This was previously addressed at his last ED visit Were old charts reviewed (outside hosp., previous admission, EMS record, old EKG, old radiological studies, urgent care reports/EKG's, detention records)? Report findings @ -No old charts were reviewed Differential Diagnosis (chest pain, altered mental status, abdominal pain women, abdominal pain men, vaginal bleeding, weakness, fever, dyspnea, syncope, headache, dizziness, GI bleed, back pain, seizure, CVA, palpatations, mental health, musculoskeletal)? @ -Differential Mental Health Depression, anxiety, bipolar, psychosis, schizophrenia, borderline personality, situational depression, adjustment disorder, behavioral disorder, brain tumor, malingering, substance abuse, encephalopathy, medication reaction, dementia, hypothyroidism, degenerative neurologic disorder, lupus.... This is not meant to be all-inclusive list EKG interpreted by me (3pts min.). @ -Not done X-rays interpreted by me (1pt min.). @ -None done CT interpreted by me (1pt min.). @ -None done U/S interpreted by me (1pt. min.). @ -None done What testing was considered but not performed or refused? (CT, X-rays, U/S, labs)? Why? @ -None What meds were considered but not given or refused? Why? @ -None Did you discuss the management of the patient with other professionals (professionals i.e. , PA, FABRIC PATTERN GRADER, lab, RT, psych nurse, social service manager, gift packer, teacher, [place] customs and border officer, case technician)? Give summary @ -No Was smoking cessation discussed for >3mins.? @ -No Was critical care preformed (if so, how long)? @ -No Were there social determinants of health that impacted care today? How? (Homelessness, low income, unemployed, alcoholism, drug addiction, transportation, low edu. Level, literacy, decrease access to med. care, skilled nursing, rehab)? @ -No Was there de-escalation of care discussed even if they declined (Discuss DNR or withdrawal of care, Hospice)? DNR status @ -No What co-morbidities impacted this encounter? (DM, HTN, Smoking, COPD, CAD, Cancer, CVA, ARF, Chemo, Hep., AIDS, mental health diagnosis, sleep apnea, morbid obesity)? @ -Schizoaffective disorder Was patient admitted / discharged? Hospital course, mention meds given and route, prescriptions, significant lab abnormalities, going to OR and other pertinent info. @ -Arrival patient is placed into room 17. There are history and physical exam was performed. Patient was given 1 mg of Ativan. Still reports anxiety symptoms and therefore is given a second dose. I did discuss treatment of anxiety at home. He will attempt hydroxyzine. Patient is to take medications as directed. Follow up with psychiatrist and inform him if he doesn't have any improvement in his symptoms. Undiagnosed new problem with uncertain prognosis? @ -No Drug Therapy requiring intensive monitoring for toxicity (Heparin, Nitro, Insulin, Cardizem)? @ -No Were any procedures done? @ -No Diagnosis/symptom? @ -Acute anxiety Acute, or Chronic, or Acute on Chronic? @ -Acute Uncomplicated (without systemic symptoms) or Complicated (systemic symptoms)? @ -Complicated Side effects of treatment? @ -No Exacerbation, Progression, or Severe Exacerbation? @ -No Poses a threat to life or bodily function? How? (Chest pain, [place], [place], pneumonia, PE, COPD, DKA, ARF, appy, cholecystitis, CVA, Diverticulitis, Homicidal, Suicidal, threat to staff... and all critical care pts) @ -No Disposition Clinical Impression: Acute anxiety Disposition: HOME SELF-CARE Condition: Stable Instructions (If sedation given, give patient instructions): Generalized A nxiety Disorder (ED) Additional Instructions: Try taking the hydroxyzine for anxiety. Follow up with your psychiatrist. If you do not have improvement, asked them for alternative medications Prescriptions: hydrOXYzine HCL [Atarax] 50 mg PO QID PRN #30 tab PRN Reason: Anxiety Is patient prescribed a controlled substance at d/c from ED?: No Referrals: None,Stated [Primary Care Provider] - 1-2 days Time of Disposition: 00:33
[2022-07-16] MEDS ORDERED: diphenhydrAMINE 50 MG CAP PO STA (00:24)
[2022-07-16 01:48] VITALS: BP 138/68
== END 2022-07-16 00:50 | disposition home or self-care (01) ==
LOC: EC 22:20
DX: F41.9 Anxiety disorder, unspecified (principal); F17.200 Nicotine dependence, unspecified, uncomplicated; F12.90 Cannabis use, unspecified, uncomplicated; Z88.6 Allergy status to analgesic agent; Z88.8 Allergy status to other drugs, medicaments and biological substances; Z86.59 Personal history of other mental and behavioral disorders
CPT/HCPCS: 99284

== ENCOUNTER 2022-07-18 23:21 | Emergency (ER) | payer MEDICARE, OTHER ==
--- NOTE | 2022-07-19 00:38 | ED ---
Anxiety HPI - General Chief Complaint: Anxiety Stated Complaint: Anxiety Time Seen by Provider: 07/18/22 23:29 Source: patient, EMS Mode of arrival: EMS - History of Present Illness Initial Comments: 26-year-old male presenting with chief complaint of anxiety. Patient is dependent on benzodiazepines for anxiety and states that he currently does not have any at home. He did drink a pint of liquor prior to arrival. States that he does not drink daily. States that at this time is anxiety has improved, states that being in the hospital makes him feel better. No chest pain, difficulty breathing, palpitations, numbness, tingling, weakness. - Related Data Home Medications: Previous Rx's Medication Instructions Recorded Nicotine 14Mg/24Hr Patch [Habitrol] 1 patch TRANSDERM DAILY 30 Days 03/09/21 patch Paliperidone IM [Invega Sustenna] 234 mg IM QMONTHLY #1 each 03/09/21 hydrOXYzine HCL [Atarax] 50 mg PO QID PRN #30 tab 07/16/22 LORazepam [Ativan] 1 mg PO HS PRN 3 Days #3 tab 07/19/22 hydrOXYzine HCL [Atarax] 50 mg PO Q6H PRN #30 tab 07/19/22 Allergies/Adverse Reactions: Allergies Allergy/AdvReac Type Severity Reaction Status Date / Time aspirin Allergy Unknown Verified 07/15/22 22:22 haloperidol [From Haldol] Allergy Rash/Hives Verified 07/15/22 22:22 haloperidol lactate Allergy Rash/Hives Verified 07/15/22 22:22 [From Haldol] risperidone [From Risperdal] Allergy MUSCLE Verified 07/15/22 22:22 SPASMS Review of Systems ROS Statement: Those systems with pertinent positive or pertinent negative responses have been documented in the HPI. ROS Other: All systems not noted in ROS Statement are negative. Past Medical History Past Medical History: No Reported History Additional Past Medical History / Comment(s): Schizoaffective Disorder; Psychosis; Alice; Scoliosis , stomach ulcers History of Any Multi-Drug Resistant Organisms: None Reported Past Surgical History: Hernia Repair Past Anesthesia/Blood Transfusion Reactions: No Reported Reaction Past Psychological History: Depression, Schizophrenia Smoking Status: Current every day smoker Past Alcohol Use History: Daily Past Drug Use History: Marijuana General Exam Limitations: no limitations General appearance: alert, in no apparent distress Head exam: Present: atraumatic, normocephalic, normal inspection Eye exam: Present: normal appearance, EOMI. Absent: scleral icterus, periorbital swelling Neck exam: Present: normal inspection, full ROM Respiratory exam: Present: normal lung sounds bilaterally. Absent: respiratory distress, wheezes, rales, rhonchi, stridor Cardiovascular Exam: Present: regular rate, normal rhythm, normal heart sounds. Absent: systolic murmur, diastolic murmur, rubs, gallop, clicks Neurological exam: Present: alert, oriented X3, CN II-XII intact Psychiatric exam: Present: normal affect, normal mood Skin exam: Present: warm, dry, intact, normal color. Absent: rash Course Vital Signs 07/18/22 07/19/22 23:23 00:51 Temperature 98.4 F 98.1 F Pulse Rate 95 91 Respiratory 18 16 Rate Blood Pressure 153/100 131/73 O2 Sat by Pulse 99 Oximetry Medical Decision Making - Medical Decision Making Was pt. sent in by a medical professional or institution (, PA, CONTRACT PREPARER, urgent care, hospital, or long term...) When possible be specific @ -No Did you speak to anyone other than the patient for history (EMS, parent, family, police, friend...)? What history was obtained from this source @ -No Did you review nursing and triage notes (agree or disagree)? Why? @ -I reviewed the triage note and disagree, patient states that he does not drink daily and he is not requesting benzos to help with alcohol withdrawal, rather he takes benzos regularly for anxiety Were old charts reviewed (outside hosp., previous admission, EMS record, old EKG, old radiological studies, urgent care reports/EKG's, long term records)? Report findings @ -No old charts were reviewed Differential Diagnosis (chest pain, altered mental status, abdominal pain women, abdominal pain men, vaginal bleeding, weakness, fever, dyspnea, syncope, headache, dizziness, GI bleed, back pain, seizure, CVA, palpatations, mental health, musculoskeletal)? @ -Differential Mental Health Depression, anxiety, bipolar, psychosis, schizophrenia, borderline personality, situational depression, adjustment disorder, behavioral disorder, brain tumor, malingering, substance abuse, encephalopathy, medication reaction, dementia, hypothyroidism, degenerative neurologic disorder, lupus.... This is not meant to be all-inclusive list EKG interpreted by me (3pts min.). @ -As above X-rays interpreted by me (1pt min.). @ -None done CT interpreted by me (1pt min.). @ -None done U/S interpreted by me (1pt. min.). @ -None done What testing was considered but not performed or refused? (CT, X-rays, U/S, labs)? Why? @ -None What meds were considered but not given or refused? Why? @ -None Did you discuss the management of the patient with other professionals (loli santizo i.e. , PA, CONTRACT PREPARER, lab, RT, psych nurse, social sciences research scientist, vocational rehabilitation teacher, teacher, school resource officer, case fitter)? Give summary @ -No Was smoking cessation discussed for >3mins.? @ -No Was critical care preformed (if so, how long)? @ -No Were there social determinants of health that impacted care today? How? (Homelessness, low income, unemployed, alcoholism, drug addiction, transportation, low edu. Level, literacy, decrease access to med. care, [facility], rehab)? @ -No Was there de-escalation of care discussed even if they declined (Discuss DNR or withdrawal of care, Hospice)? DNR status @ -No What co-morbidities impacted this encounter? (DM, HTN, Smoking, COPD, CAD, Cancer, CVA, ARF, Chemo, Hep., AIDS, mental health diagnosis, sleep apnea, morbid obesity)? @ -None Was patient admitted / discharged? Hospital course, mention meds given and route, prescriptions, significant lab abnormalities, going to OR and other pertinent info. @ -26-year-old male presenting with chief complaint of anxiety. States he is having a panic attack at home. His anxiety is improved at this moment but he is requesting a prescription for Ativan. Physical examination is unremarkable. Explained to the patient that we will not be providing Ativan at this time and sent him a prescription for hydroxyzine. Follow-up with PCP. Report back to ER with any new or worsening symptoms. Discussed return parameters and answered all questions. Patient conveyed verbal understanding and agreed to the plan. I discussed this case in detail with my attending Dr. Baum Undiagnosed new problem with uncertain prognosis? @ -No Drug Therapy requiring intensive monitoring for toxicity (Heparin, Nitro, Insulin, Cardizem)? @ -No Were any procedures done? @ -No Diagnosis/symptom? @ -Anxiety Acute, or Chronic, or Acute on Chronic? @ -Acute Uncomplicated (without systemic symptoms) or Complicated (systemic symptoms)? @ -Uncomplicated Side effects of treatment? @ -No Exacerbation, Progression, or Severe Exacerbation? @ -No Poses a threat to life or bodily function? How? (Chest pain, [place], [place], pneumonia, PE, COPD, DKA, ARF, appy, cholecystitis, CVA, Diverticulitis, Homicidal, Suicidal, threat to staff... and all critical care pts) @ -No Disposition Clinical Impression: Panic attack Disposition: HOME SELF-CARE Condition: Good Instructions (If sedation given, give patient instructions): Generalized Anxiety Disorder (ED) Additional Instructions: Follow-up with PCP. Report back to ER with any new or worsening symptoms. Take medication as prescribed. Prescriptions: hydrOXYzine HCL [Atarax] 50 mg PO Q6H PRN #30 tab PRN Reason: Anxiety Is patient prescribed a controlled substance at d/c from ED?: No Referrals: None,Stated [Primary Care Provider] - 1-2 days Time of Disposition: 00:38
[2022-07-19 00:52] VITALS: BP 131/73; PULSE 91; RESP 16; TEMP 98.1
== END 2022-07-19 00:52 | disposition home or self-care (01) ==
LOC: EC 23:21
DX: F41.0 Panic disorder [episodic paroxysmal anxiety] (principal); F12.90 Cannabis use, unspecified, uncomplicated; F17.200 Nicotine dependence, unspecified, uncomplicated; Z88.6 Allergy status to analgesic agent; Z88.8 Allergy status to other drugs, medicaments and biological substances
CPT/HCPCS: 82075; 99283

== ENCOUNTER 2022-07-19 02:07 | Emergency (ER) | payer MEDICARE, OTHER ==
[2022-07-19] MEDS ORDERED: LORazepam 1 MG TAB PO STA (02:36)
--- NOTE | 2022-07-19 02:37 | ED ---
Anxiety HPI - General Chief Complaint: Anxiety Stated Complaint: Anxiety Time Seen by Provider: 07/19/22 02:22 Source: EMS Mode of arrival: EMS - History of Present Illness Initial Comments: Patient is a 26-year-old male read presenting with chief complaint of anxiety. He states that when he goes home his anxiety is getting significantly worse. He is requesting a mental health evaluation. Denies any suicidal or homicidal ideation. No physical complaints at this time. - Related Data Home Medications: Previous Rx's Medication Instructions Recorded Nicotine 14Mg/24Hr Patch [Habitrol] 1 patch TRANSDERM DAILY 30 Days 03/09/21 patch Paliperidone IM [Invega Sustenna] 234 mg IM QMONTHLY #1 each 03/09/21 hydrOXYzine HCL [Atarax] 50 mg PO QID PRN #30 tab 07/16/22 LORazepam [Ativan] 1 mg PO HS PRN 3 Days #3 tab 07/19/22 hydrOXYzine HCL [Atarax] 50 mg PO Q6H PRN #30 tab 07/19/22 Allergies/Adverse Reactions: Allergies Allergy/AdvReac Type Severity Reaction Status Date / Time aspirin Allergy Unknown Verified 07/15/22 22:22 haloperidol [From Haldol] Allergy Rash/Hives Verified 07/15/22 22:22 haloperidol lactate Allergy Rash/Hives Verified 07/15/22 22:22 [From Haldol] risperidone [From Risperdal] Allergy MUSCLE Verified 07/15/22 22:22 SPASMS Review of Systems ROS Statement: Those systems with pertinent positive or pertinent negative responses have been documented in the HPI. ROS Other: All systems not noted in ROS Statement are negative. Past Medical History Past Medical History: No Reported History Additional Past Medical History / Comment(s): Schizoaffective Disorder; Psychosis; Alice; Scoliosis , stomach ulcers History of Any Multi-Drug Resistant Organisms: None Reported Past Surgical History: Hernia Repair Past Anesthesia/Blood Transfusion Reactions: No Reported Reaction Past Psychological History: Depression, Schizophrenia Smoking Status: Current every day smoker Past Alcohol Use History: Daily Past Drug Use History: Marijuana General Exam Limitations: no limitations General appearance: alert, in no apparent distress Head exam: Present: atraumatic, normocephalic, normal inspection Eye exam: Present: normal appearance, EOMI. Absent: scleral icterus, periorbital swelling Neck exam: Present: normal inspection, full ROM Respiratory exam: Present: normal lung sounds bilaterally. Absent: respiratory distress, wheezes, rales, rhonchi, stridor Cardiovascular Exam: Present: regular rate, normal rhythm, normal heart sounds. Absent: systolic murmur, diastolic murmur, rubs, gallop, clicks Neurological exam: Present: alert, oriented X3, CN II-XII intact Psychiatric exam: Present: normal affect, normal mood Skin exam: Present: warm, dry, intact, normal color. Absent: rash Course Vital Signs 07/19/22 07/19/22 02:21 04:18 Temperature 99.0 F Pulse Rate 72 85 Respiratory 18 18 Rate Blood Pressure 134/61 122/86 O2 Sat by Pulse 97 97 Oximetry Medical Decision Making - Medical Decision Making Was pt. sent in by a medical professional or institution (, PA, WASH OIL PUMP OPERATOR HELPER, urgent care, hospital, or halfway...) When possible be specific @ -No Did you speak to anyone other than the patient for history (EMS, parent, family, police, friend...)? What history was obtained from this source @ -No Did you review nursing and triage notes (agree or disagree)? Why? @ -I reviewed and agree with nursing and triage notes Were old charts reviewed (outside hosp., previous admission, EMS record, old EKG, old radiological studies, urgent care reports/EKG's, halfway records)? Report findings @ -No old charts were reviewed Differential Diagnosis (chest pain, altered mental status, abdominal pain women, abdominal pain men, vaginal bleeding, weakness, fever, dyspnea, syncope, headache, dizziness, GI bleed, back pain, seizure, CVA, palpatations, mental health, musculoskeletal)? @ Differential Mental Health Depression, anxiety, bipolar, psychosis, schizophrenia, borderline personality, situational depression, adjustment disorder, behavioral disorder, brain tumor, malingering, substance abuse, encephalopathy, medication reaction, dementia, hypothyroidism, degenerative neurologic disorder, lupus.... This is not meant to be all-inclusive list EKG interpreted by me (3pts min.). @ -As above X-rays interpreted by me (1pt min.). @ -None done CT interpreted by me (1pt min.). @ -None done U/S interpreted by me (1pt. min.). @ -None done What testing was considered but not performed or refused? (CT, X-rays, U/S, labs)? Why? @ -None What meds were considered but not given or refused? Why? @ -None Did you discuss the management of the patient with other professionals (professionals i.e. , PA, WASH OIL PUMP OPERATOR HELPER, lab, RT, psych nurse, social media editor, bin worker, teacher, strike operations officer, shoe caser)? Give summary @ -Spoke with EPS nurse who deems the patient safe for discharge home Was smoking cessation discussed for >3mins.? @ -No Was critical care preformed (if so, how long)? @ -No Were there social determinants of health that impacted care today? How? (Homelessness, low income, unemployed, alcoholism, drug addiction, transportation, low edu. Level, literacy, decrease access to med. care, snf, rehab)? @ -No Was there de-escalation of care discussed even if they declined (Discuss DNR or withdrawal of care, Hospice)? DNR status @ -No What co-morbidities impacted this encounter? (DM, HTN, Smoking, COPD, CAD, Cancer, CVA, ARF, Chemo, Hep., AIDS, mental health diagnosis, sleep apnea, morbid obesity)? @ -None Was patient admitted / discharged? Hospital course, mention meds given and route , prescriptions, significant lab abnormalities, going to OR and other pertinent info. @ -26-year-old male presenting with chief complaint of anxiety. Patient came back for reevaluation because he had increasing anxiety when he got home. He would like a mental health evaluation. Patient was evaluated by EPS and determined safe for discharge. He is instructed to follow up with [facility].Follow-up with PCP. Report back to ER with any new or worsening symptoms. Discussed return parameters and answered all questions. Patient conveyed verbal understanding and agreed to the plan. I discussed this case in detail with my attending Dr. Baum Undiagnosed new problem with uncertain prognosis? @ -No Drug Therapy requiring intensive monitoring for toxicity (Heparin, Nitro, Insulin, Cardizem)? @ -No Were any procedures done? @ -No Diagnosis/symptom? @ -Anxiety with benzodiazepine dependence Acute, or Chronic, or Acute on Chronic? @ -Acute on Chronic Uncomplicated (without systemic symptoms) or Complicated (systemic symptoms)? @ -Uncomplicated Side effects of treatment? @ -No Exacerbation, Progression, or Severe Exacerbation? @ -No Poses a threat to life or bodily function? How? (Chest pain, [place], [place], pneumonia, PE, COPD, DKA, ARF, appy, cholecystitis, CVA, Diverticulitis, Homicidal, Suicidal, threat to staff... and all critical care pts) @ -No Disposition Clinical Impression: Anxiety Disposition: HOME SELF-CARE Condition: Good Instructions (If sedation given, give patient instructions): Generalized Anxiety Disorder (ED) Additional Instructions: Follow-up with PCP and [facility]. Report back to ER with any new or worsening symptoms. Take medication as prescribed. Prescriptions: LORazepam [Ativan] 1 mg PO HS PRN 3 Days #3 tab PRN Reason: Anxiety Is patient prescribed a controlled substance at d/c from ED?: Yes When asked, does pt state using other controlled substances?: No If prescribed controlled substance>3 days was MAPS reviewed?: Prescribed <3 Days Referrals: Nonstaff,Physician [Primary Care Provider] - 1-2 days Time of Disposition: 03:56
[2022-07-19 03:11] VITALS: RESP 18; TEMP 99
[2022-07-19 04:19] VITALS: BP 122/86; PULSE 85
== END 2022-07-19 04:20 | disposition home or self-care (01) ==
LOC: EC 02:07
DX: F41.9 Anxiety disorder, unspecified (principal); F12.90 Cannabis use, unspecified, uncomplicated; F17.200 Nicotine dependence, unspecified, uncomplicated; Z88.8 Allergy status to other drugs, medicaments and biological substances; Z88.5 Allergy status to narcotic agent
CPT/HCPCS: 82075; 99283

== ENCOUNTER 2022-07-25 19:39 | Emergency (ER) | payer MEDICARE, OTHER ==
[2022-07-25 20:04] VITALS: BP 142/86; PULSE 103; RESP 22; TEMP 97.5
[2022-07-25] MEDS ORDERED: LORazepam 2 MG/ML INJ IM STA (21:51)
--- NOTE | 2022-07-25 21:52 | ED ---
Anxiety HPI - General Chief Complaint: Anxiety Stated Complaint: Panic attack Time Seen by Provider: 07/25/22 21:43 Source: patient Mode of arrival: ambulatory - History of Present Illness Initial Comments: 26-year-old male presenting with chief complaint of anxiety. Patient has history of anxiety and states that he was having a panic attack earlier today. Patient is requesting a dose of Ativan for his anxiety. He states that he has an upcoming appointment with his psychiatrist. No chest pain, difficulty breathing, nausea, vomiting, abdominal pain. No acute distress at this time. - Related Data Home Medications: Previous Rx's Medication Instructions Recorded Nicotine 14Mg/24Hr Patch [Habitrol] 1 patch TRANSDERM DAILY 30 Days 03/09/21 patch Paliperidone IM [Invega Sustenna] 234 mg IM QMONTHLY #1 each 03/09/21 hydrOXYzine HCL [Atarax] 50 mg PO QID PRN #30 tab 07/16/22 LORazepam [Ativan] 1 mg PO HS PRN 3 Days #3 tab 07/19/22 hydrOXYzine HCL [Atarax] 50 mg PO Q6H PRN #30 tab 07/19/22 Allergies/Adverse Reactions: Allergies Allergy/AdvReac Type Severity Reaction Status Date / Time aspirin Allergy Unknown Verified 07/25/22 20:04 haloperidol [From Haldol] Allergy Rash/Hives Verified 07/25/22 20:04 haloperidol lactate Allergy Rash/Hives Verified 07/25/22 20:04 [From Haldol] risperidone [From Risperdal] Allergy MUSCLE Verified 07/25/22 20:04 SPASMS Review of Systems ROS Statement: Those systems with pertinent positive or pertinent negative responses have been documented in the HPI. ROS Other: All systems not noted in ROS Statement are negative. Past Medical History Past Medical History: No Reported History Additional Past Medical History / Comment(s): Schizoaffective Disorder; Psychosis; Alice; Scoliosis , stomach ulcers History of Any Multi-Drug Resistant Organisms: None Reported Past Surgical History: Hernia Repair Past Anesthesia/Blood Transfusion Reactions: No Reported Reaction Past Psychological History: Depression, Schizophrenia Smoking Status: Current every day smoker Past Alcohol Use History: Daily Past Drug Use History: Marijuana General Exam Limitations: no limitations General appearance: alert, in no apparent distress Head exam: Present: atraumatic, normocephalic, normal inspection Eye exam: Present: normal appearance, EOMI. Absent: scleral icterus, periorbital swelling Neck exam: Present: normal inspection, full ROM Respiratory exam: Present: normal lung sounds bilaterally. Absent: respiratory distress, wheezes, rales, rhonchi, stridor Cardiovascular Exam: Present: regular rate, normal rhythm, normal heart sounds. Absent: systolic murmur, diastolic murmur, rubs, gallop, clicks Neurological exam: Present: alert, oriented X3, CN II-XII intact Psychiatric exam: Present: normal affect, normal mood Skin exam: Present: warm, dry, intact, normal color. Absent: rash Course Vital Signs 07/25/22 20:00 Temperature 97.5 F L Pulse Rate 103 H Respiratory 22 Rate Blood Pressure 142/86 O2 Sat by Pulse 99 Oximetry Medical Decision Making - Medical Decision Making Was pt. sent in by a medical professional or institution ([facility], [employer]CT PHILOSOPHY FACULTY, urgent care, hospital, or [facility]...) When possible be specific @ -No Did you speak to anyone other than the patient for history (EMS, parent, family, police, friend...)? What history was obtained from this source @ -No Did you review nursing and triage notes (agree or disagree)? Why? @ -I reviewed and agree with nursing and triage notes Were old charts reviewed (outside hosp., previous admission, EMS record, old EKG, old radiological studies, urgent care reports/EKG's, [facility] records)? Report findings @ -No old charts were reviewed Differential Diagnosis (chest pain, altered mental status, abdominal pain women, abdominal pain men, vaginal bleeding, weakness, fever, dyspnea, syncope, headache, dizziness, GI bleed, back pain, seizure, CVA, palpatations, mental health, musculoskeletal)? @ -Differential Mental Health Depression, anxiety, bipolar, psychosis, schizophrenia, borderline personality, situational depression, adjustment disorder, behavioral disorder, brain tumor, malingering, substance abuse, encephalopathy, medication reaction, dementia, hypothyroidism, degenerative neurologic disorder, lupus.... This is not meant to be all-inclusive list EKG interpreted by me (3pts min.). @ -As above X-rays interpreted by me (1pt min.). @ -None done CT interpreted by me (1pt min.). @ -None done U/S interpreted by me (1pt. min.). @ -None done What testing was considered but not performed or refused? (CT, X-rays, U/S, labs)? Why? @ -None What meds were considered but not given or refused? Why? @ -None Did you discuss the management of the patient with other professionals (professionals i.e. , PA, ADJ[employer]CT PHILOSOPHY FACULTY, lab, RT, psych nurse, child protective services social worker, service desk specialist, teacher, chemistry technical officer, catalytic case operator)? Give summary @ -No Was smoking cessation discussed for >3mins.? @ -No Was critical care preformed (if so, how long)? @ -No Were there social determinants of health that impacted care today? How? (Homelessness, low income, unemployed, alcoholism, drug addiction, transportation, low edu. Level, literacy, decrease access to med. care, penitentiary, rehab)? @ -No Was there de-escalation of care discussed even if they declined (Discuss DNR or withdrawal of care, Hospice)? DNR status @ -No What co-morbidities impacted this encounter? (DM, HTN, Smoking, COPD, CAD, Cancer, CVA, ARF, Chemo, Hep., AIDS, mental health diagnosis, sleep apnea, morbid obesity)? @ -None Was patient admitted / discharged? Hospital course, mention meds given and route, prescriptions, significant lab abnormalities, going to OR and other pertinent info. @ -26-year-old male presenting with chief complaint of anxiety. Patient is given a dose of Ativan for his anxiety which he states is improved his symptoms. Patient will follow up with his psychiatrist. Follow-up with PCP. Report back to ER with any new or worsening symptoms. Discussed return parameters and answered all questions. Patient conveyed verbal understanding and agreed to the plan. I discussed this case in detail with my attending Dr. Balderas Undiagnosed new problem with uncertain prognosis? @ -No Drug Therapy requiring intensive monitoring for toxicity (Heparin, Nitro, Insulin, Cardizem)? @ -No Were any procedures done? @ -No Diagnosis/symptom? @ -Anxiety Acute, or Chronic, or Acute on Chronic? @ -Acute Uncomplicated (without systemic symptoms) or Complicated (systemic symptoms)? @ -Uncomplicated Side effects of treatment? @ -No Exacerbation, Progression, or Severe Exacerbation? @ -No Poses a threat to life or bodily function? How? (Chest pain, [place], [place], pneumonia, PE, COPD, DKA, ARF, appy, cholecystitis, CVA, Diverticulitis, Homicidal, Suicidal, threat to staff... and all critical care pts) @ -No Disposition Clinical Impression: Anxiety Disposition: HOME SELF-CARE Condition: Good Instructions (If sedation given, give patient instructions): Generalized Anxiety Disorder (ED) Additional Instructions: Follow-up with psychiatrist at scheduled appointment. Report back to ER with any new or worsening symptoms. Is patient prescribed a controlled substance at d/c from ED?: No Referrals: None,Stated [Primary Care Provider] - 1-2 days Time of Disposition: 21:52
== END 2022-07-25 22:24 | disposition home or self-care (01) ==
LOC: EC 19:39
DX: F41.9 Anxiety disorder, unspecified (principal); F12.90 Cannabis use, unspecified, uncomplicated; F17.200 Nicotine dependence, unspecified, uncomplicated; Z86.59 Personal history of other mental and behavioral disorders; Z88.8 Allergy status to other drugs, medicaments and biological substances
CPT/HCPCS: 99284; 96372; J2060

== ENCOUNTER 2022-08-08 20:38 | Inpatient (IN) | payer MEDICARE, MEDICAID ==
--- NOTE | 2022-08-08 22:28 | ED ---
Psych HPI - General Chief Complaint: Psychiatric Symptoms Stated Complaint: Mental Health Time Seen by Provider: 08/08/22 21:51 Source: patient, RN notes reviewed, old records reviewed Mode of arrival: ambulatory Limitations: no limitations - History of Present Illness Initial Comments: This is a 26-year-old male to the emergency department for evaluation patient presents today for evaluation of for psychiatric illness. History of psychiatric illness and psychosis, poor historian secondary to clinical state. MD Complaint: feels depressed, other (Alkalosis) -: unknown History of same: Yes Quality: constant Improves With: none Worsens With: none Associated Symptoms: denies other symptoms Treatments Prior to Arrival: placed on mental health hold If Self Harm: has plan - Related Data Home Medications Medication Instructions Recorded Confirmed fluPHENAZine decanoate [Prolixin 25 mg IM Q14D 08/08/22 08/08/22 Decanoate] Allergies Allergy/AdvReac Type Severity Reaction Status Date / Time aspirin Allergy Unknown Verified 08/08/22 23:03 haloperidol [From Haldol] Allergy Rash/Hives Verified 08/08/22 23:03 haloperidol lactate Allergy Rash/Hives Verified 08/08/22 23:03 [From Haldol] risperidone [From Risperdal] Allergy MUSCLE Verified 08/08/22 23:03 SPASMS Review of Systems ROS Statement: Those systems with pertinent positive or pertinent negative responses have been documented in the HPI. ROS Other: All systems not noted in ROS Statement are negative. Past Medical History Past Medical History: No Reported History Additional Past Medical History / Comment(s): Schizoaffective Disorder; Psychosis; Alice; Scoliosis , stomach ulcers History of Any Multi-Drug Resistant Organisms: None Reported Past Surgical History: Hernia Repair Past Anesthesia/Blood Transfusion Reactions: No Reported Reaction Past Psychological History: Depression, Schizophrenia Smoking Status: Current every day smoker Past Alcohol Use History: Daily Past Drug Use History: Marijuana General Exam Limitations: no limitations General appearance: alert, in no apparent distress Head exam: Present: atraumatic, normocephalic, normal inspection Eye exam: Present: normal appearance, PERRL, EOMI. Absent: scleral icterus, conjunctival injection, periorbital swelling ENT exam: Present: normal exam, mucous membranes moist Neck exam: Present: normal inspection. Absent: tenderness, meningismus, lymphadenopathy Respiratory exam: Present: normal lung sounds bilaterally. Absent: respiratory distress, wheezes, rales, rhonchi, stridor Cardiovascular Exam: Present: regular rate, normal rhythm, normal heart sounds. Absent: systolic murmur, diastolic murmur, rubs, gallop, clicks GI/Abdominal exam: Present: soft, normal bowel sounds. Absent: distended, tenderness, guarding, rebound, rigid Extremities exam: Present: normal inspection, full ROM, normal capillary refill. Absent: tenderness, pedal edema, joint swelling, calf tenderness Back exam: Present: normal inspection Neurological exam: Present: alert, oriented X3, CN II-XII intact Psychiatric exam: Present: normal affect, normal mood Skin exam: Present: warm, dry, intact, normal color. Absent: rash Course Vital Signs 08/08/22 21:43 Temperature 97.9 F Pulse Rate 102 H Respiratory 16 Rate Blood Pressure 120/87 O2 Sat by Pulse 98 Oximetry - Reevaluation(s) Reevaluation #1: 08/09/22 03:12 Medical record is reviewed Reevaluation #2: 08/09/22 03:12 by [facility] clear for psychiatric evaluation Medical Decision Making - Medical Decision Making 76 male the emergency department for evaluation of psychiatric illness and psychosis, patient be admitted for psychiatric evaluation and treatment - Lab Data Lab Results 08/09/22 08/09/22 Range/Units 00:17 00:20 Urine Color [place] Urine Appearance Cloudy (Clear) Urine pH 6.0 (5.0-8.0) Ur Specific [place] 1.044 H (1.001-1.035) Urine Protein 3+ H (Negative) Urine Glucose (UA) Negative (Negative) Urine Ketones 1+ H (Negative) Urine Blood Negative (Negative) Urine Nitrite Negative (Negative) Urine Bilirubin 1+ H (Negative) Urine Urobilinogen 6.0 (<2.0) mg/dL Ur Leukocyte Esterase Negative (Negative) Urine RBC 15 H (0-5) /hpf Urine WBC 3 (0-5) /hpf Ur Squamous Epith Cells 1 (0-4) /hpf Urine Mucus Many H (None) /hpf Urine Opiates Screen Not Detected (NotDetected) Ur Oxycodone Screen Not Detected (NotDetected) Urine Methadone Screen Not Detected (NotDetected) Ur Propoxyphene Screen Not Detected (NotDetected) Ur Barbiturates Screen Not Detected (NotDetected) U Tricyclic Antidepress Not Detected (NotDetected) Ur Phencyclidine Scrn Not Detected (NotDetected) Ur Amphetamines Screen Detected H (NotDetected) U Methamphetamines Scrn Detected H (NotDetected) U Benzodiazepines Scrn Not Detected (NotDetected) Urine Cocaine Screen Detected H (NotDetected) U Marijuana (THC) Screen Detected H (NotDetected) Influenza Type A (PCR) Not Detected (Not Detectd) Influenza Type B (PCR) Not Detected (Not Detectd) RSV (PCR) Not Detected (Not Detectd) SARS-CoV-2 (PCR) Not Detected (Not Detectd) Disposition Clinical Impression: Acute psychosis, Psychosis, Schizoaffective disorder, bipolar type, Anxiety and depression, Noncompliance with medication regimen Disposition: TRANSFER TO PSYCH HOSP/UNIT Condition: Fair Is patient prescribed a controlled substance at d/c from ED?: No
[2022-08-08] MEDS ORDERED: NICOTINE 21MG/24HR PATCH TRANSDERM STA (23:28)
[2022-08-09 00:41] LABS: Appearance,Urine Cloudy (Clear); Bilirubin,Urine 1+ (Negative); Blood,Urine Negative (Negative); Color,Urine Orange; Glucose,Urine (UA) Negative (Negative); Ketones,Urine 1+ (Negative); Leukocyte Esterase,Urine Negative (Negative); Mucus,Urine Many /hpf; Nitrite,Urine Negative (Negative); Protein,Urine 3+ (Negative); RBC,Urine 15 /hpf (0-5); Specific Gravity,Urine 1.044 (1.001-1.035); Squamous Epithelial Cell,Urine 1 /hpf (0-4); WBC,Urine 3 /hpf (0-5)
[2022-08-09 00:46] LABS: Amphetamine Screen,Urine Detected (NotDetected); Barbiturate Screen,Urine Not Detected (NotDetected); Benzodiazepines Screen,Urine Not Detected (NotDetected); Cocaine Screen,Urine Detected (NotDetected); Methadone Screen, Urine Not Detected (NotDetected); Opiate Screen,Urine Not Detected (NotDetected); Oxycodone Screen, Urine Not Detected (NotDetected); Phencyclidine Screen,Urine Not Detected (NotDetected); Tricyclic Antidepressant,Urine Not Detected (NotDetected); Urn Cannabinoid Scrn Detected (NotDetected)
[2022-08-09] MEDS ORDERED: IBUPROFEN 600 MG TAB PO PRN (03:07)
[2022-08-09] MEDS ORDERED: ZIPRASIDONE 20 MG VIAL IM PRN (03:07)
[2022-08-09] MEDS ORDERED: MAG HYDROX/AL HYDROX/SIMETH 30 ML CUP PO PRN (03:07)
[2022-08-09] MEDS ORDERED: ACETAMINOPHEN TAB 325 MG TAB PO PRN (03:07)
[2022-08-09] MEDS ORDERED: ZIPRASIDONE 20 MG CAP PO PRN (03:15)
[2022-08-09] MEDS ORDERED: LORazepam 2 MG/ML INJ IM PRN (03:16)
[2022-08-09 03:23] LABS: Basophils % (A) 0 %; Eosinophils # (A) 0.1 k/uL (0-0.7); Eosinophils % (A) 2 %; HCT 51.9 % (39.0-53.0); HGB 17.8 gm/dL (13.0-17.5); Lymphocytes % (A) 33 %; MCH 33.7 pg (25.0-35.0); MCHC 34.3 g/dL (31.0-37.0); MCV 98.4 fL (80.0-100.0); Mean Platelet Volume 7.3; Monocytes # (A) 0.3 k/uL (0-1.0); Monocytes % (A) 5 %; Neutrophils # (A) 3.5 k/uL (1.3-7.7); Neutrophils % (A) 58 %; Platelet Count 230 k/uL (150-450); RBC 5.28 m/uL (4.30-5.90); RDW 13.4 % (11.5-15.5)
[2022-08-09 03:31] LABS: ALT 18 U/L (4-49); AST 18 U/L (17-59); African American GFR (CKD) >90 (>60 ml/min/1.73 sqM); Albumin 4.9 g/dL (3.5-5.0); Alkaline Phosphatase 108 U/L (38-126); Anion Gap 13 mmol/L; Blood Urea Nitrogen 11 mg/dL (9-20); Calcium 9.7 mg/dL (8.4-10.2); Carbon Dioxide 25 mmol/L (22-30); Chloride 102 mmol/L (98-107); Glucose 100 mg/dL (74-99); Non-African American GFR(CKD) >90 (>60 ml/min/1.73 sqM); Potassium 3.7 mmol/L (3.5-5.1); Sodium 140 mmol/L (137-145); Total Bilirubin 1.5 mg/dL (0.2-1.3); Total Protein 7.5 g/dL (6.3-8.2)
[2022-08-09] MEDS: NICOTINE 14MG/24HR PATCH TRANSDERM SCH (08:20)
[2022-08-09 09:24] LABS: Chol/HDL Ratio 4.68 Ratio; LDL Cholesterol,Calculated 92.5 mg/dL (0.0-131.0)
--- NOTE | 2022-08-09 16:20 | P.HP ---
Psychiatric H&P - . H&P Date: 08/09/22 History & Physical: Allergies Allergy/AdvReac Type Severity Reaction Status Date / Time aspirin Allergy Unknown Verified 08/08/22 23:03 haloperidol [From Haldol] Allergy Rash/Hives Verified 08/08/22 23:03 haloperidol lactate Allergy Rash/Hives Verified 08/08/22 23:03 [From Haldol] risperidone [From Risperdal] Allergy MUSCLE Verified 08/08/22 23:03 SPASMS Vital Signs Temp 97.8 F 08/09/22 04:33 Pulse 95 08/09/22 04:33 Resp 18 08/09/22 04:33 BP 116/78 08/09/22 04:33 Pulse Ox 98 08/08/22 21:43 FiO2 Intake & Output 08/08/22 08/09/22 08/09/22 18:59 06:59 18:59 Weight 99.337 kg Laboratory Last Values WBC 6.0 k/uL (3.8-10.6) 08/09/22 02:35 RBC 5.28 m/uL (4.30-5.90) 08/09/22 02:35 Hgb 17.8 gm/dL (13.0-17.5) H 08/09/22 02:35 Hct 51.9 % (39.0-53.0) 08/09/22 02:35 MCV 98.4 fL (80.0-100.0) 08/09/22 02:35 MCH 33.7 pg (25.0-35.0) 08/09/22 02:35 MCHC 34.3 g/dL (31.0-37.0) 08/09/22 02:35 RDW 13.4 % (11.5-15.5) 08/09/22 02:35 Plt Count 230 k/uL (150-450) 08/09/22 02:35 MPV 7.3 08/09/22 02:35 Neutrophils % 58 % 08/09/22 02:35 Lymphocytes % 33 % 08/09/22 02:35 Monocytes % 5 % 08/09/22 02:35 Eosinophils % 2 % 08/09/22 02:35 Basophils % 0 % 08/09/22 02:35 Neutrophils # 3.5 k/uL (1.3-7.7) 08/09/22 02:35 Lymphocytes # 2.0 k/uL (1.0-4.8) 08/09/22 02:35 Monocytes # 0.3 k/uL (0-1.0) 08/09/22 02:35 Eosinophils # 0.1 k/uL (0-0.7) 08/09/22 02:35 Basophils # 0.0 k/uL (0-0.2) 08/09/22 02:35 Sodium 140 mmol/L (137-145) 08/09/22 02:35 Potassium 3.7 mmol/L (3.5-5.1) 08/09/22 02:35 Chloride 102 mmol/L (98-107) 08/09/22 02:35 Carbon Dioxide 25 mmol/L (22-30) 08/09/22 02:35 Anion Gap 13 mmol/L 08/09/22 02:35 BUN 11 mg/dL (9-20) 08/09/22 02:35 Creatinine 0.90 mg/dL (0.66-1.25) 08/09/22 02:35 Est GFR (CKD-EPI)AfAm >90 (>60 ml/min/1.73 sqM) 08/09/22 02:35 Est GFR (CKD-EPI)NonAf >90 (>60 ml/min/1.73 sqM) 08/09/22 02:35 Glucose 100 mg/dL (74-99) H 08/09/22 02:35 Calcium 9.7 mg/dL (8.4-10.2) 08/09/22 02:35 Total Bilirubin 1.5 mg/dL (0.2-1.3) H 08/09/22 02:35 AST 18 U/L (17-59) 08/09/22 02:35 ALT 18 U/L (4-49) 08/09/22 02:35 Alkaline Phosphatase 108 U/L (38-126) 08/09/22 02:35 Total Protein 7.5 g/dL (6.3-8.2) 08/09/22 02:35 Albumin 4.9 g/dL (3.5-5.0) 08/09/22 02:35 Triglycerides 139.00 mg/dL (0.00-149.00) 08/09/22 02:35 Cholesterol 153.00 mg/dL (0.00-200.00) 08/09/22 02:35 LDL Cholesterol, Calc 92.5 mg/dL (0.0-131.0) 08/09/22 02:35 VLDL Cholesterol, Calc 27.80 mg/dL (5.00-40.00) 08/09/22 02:35 HDL Cholesterol 32.70 mg/dL (40.00-60.00) L 08/09/22 02:35 Cholesterol/HDL Ratio 4.68 Ratio 08/09/22 02:35 TSH 2.820 mIU/L (0.465-4.680) 08/09/22 02:35 Urine Color [place] 08/09/22 00:20 Urine Appearance Cloudy (Clear) 08/09/22 00:20 Urine pH 6.0 (5.0-8.0) 08/09/22 00:20 Ur Specific [place] 1.044 (1.001-1.035) H 08/09/22 00:20 Urine Protein 3+ (Negative) H 08/09/22 00:20 Urine Glucose (UA) Negative (Negative) 08/09/22 00:20 Urine Ketones 1+ (Negative) H 08/09/22 00:20 Urine Blood Negative (Negative) 08/09/22 00:20 Urine Nitrite Negative (Negative) 08/09/22 00:20 Urine Bilirubin 1+ (Negative) H 08/09/22 00:20 Urine Urobilinogen 6.0 mg/dL (<2.0) 08/09/22 00:20 Ur Leukocyte Esterase Negative (Negative) 08/09/22 00:20 Urine RBC 15 /hpf (0-5) H 08/09/22 00:20 Urine WBC 3 /hpf (0-5) 08/09/22 00:20 Ur Squamous Epith Cells 1 /hpf (0-4) 08/09/22 00:20 Urine Mucus Many /hpf (None) H 08/09/22 00:20 Urine Opiates Screen Not Detected (NotDetected) 08/09/22 00:20 Ur Oxycodone Screen Not Detected (NotDetected) 08/09/22 00:20 Urine Methadone Screen Not Detected (NotDetected) 08/09/22 00:20 Ur Propoxyphene Screen Not Detected (NotDetected) 08/09/22 00:20 Ur Barbiturates Screen Not Detected (NotDetected) 08/09/22 00:20 U Tricyclic Antidepress Not Detected (NotDetected) 08/09/22 00:20 Ur Phencyclidine Scrn Not Detected (NotDetected) 08/09/22 00:20 Ur Amphetamines Screen Detected (NotDetected) H 08/09/22 00:20 U Methamphetamines Scrn Detected (NotDetected) H 08/09/22 00:20 U Benzodiazepines Scrn Not Detected (NotDetected) 08/09/22 00:20 Urine Cocaine Screen Detected (NotDetected) H 08/09/22 00:20 U Marijuana (THC) Screen Detected (NotDetected) H 08/09/22 00:20 Influenza Type A (PCR) Not Detected (Not Detectd) 08/09/22 00:17 Influenza Type B (PCR) Not Detected (Not Detectd) 08/09/22 00:17 RSV (PCR) Not Detected (Not Detectd) 08/09/22 00:17 SARS-CoV-2 (PCR) Not Detected (Not Detectd) 08/09/22 00:17 admission data THis 26 yr old single male who was followed in the community at [facility] by the team was admitted through the EMERG. with value complaint of sucidal plan later on he retracted his scenerio upon transfer to the unit. He requested to have a psychiatric evaluation CHief complaint: medication adjusted and appointment mix up HPI ; With a longstnading history of substance use :Cannabis, psychostimulants and caffeine abuse, he has been followed in the [facility] for quite some time for his psychiatric disorder : schizoaffective disorder. In reviewing his medication history. he was tried on Depot Injection: Prolixin, fluphenazine decanoate, Invega sustenna, with no sustianed effect. He has tried on various antipsychotics and mood stabilizers 1. [place] and Depakote for mood stabilizer 2. antipsychotics; risperidol , invega, olanzapine . He was even tried on clozapine 2021 for his treatment resistant bipolar/schizophrenia 3. SSRI: lexapor most likely for augmentation and/or comorbid depression 4. [id number] mg fro brief period of time. Query ADHD to be further assessed. He may have experienced akathisia for which hew as on Inderal LA and benzodiazepine . for EPS on cogentin When he was last seen in May 2022, he experienced panic attacks or symptoms attributed to caffeine abuse or excessive use. In the past, he may have abused cocaine cannabis. He received counselling in the past. He seemed to be relatively fixed on the kennedy of LExapro.He noted he has continuous diarrhoea when he was starged on lexapro by Dr. Nikkie Strong. His intermitten substance use : alcohol cannabisand nicotine use disorder are listed as active in May 2022. In reviewing the medical workup in the emrg. the urine toxicol revleated his urine was tested positive for cannabis, cocaine, ampheamine and methamphetmine. In may,, he denied he was an ative current user of substances of abuse. His CARL detected in the urine may be the major factro ofhis emergency visit. He was not aware of the extent of his CARL and wanted to be discharged early . Non- adherence towards treatment and medication has been a regular feature of his presentation with no history of violence. He stated he ended his probation at the [facility]; he may have been totally non-adherent and may have been on legal conditions for him to continue to recevie treatment in the [facility]. In May 2022, in [facility], he did nto exhibit anhedonia; enjoying socialization with friends. playing video games. and music. During the session, he complained of mxiing up appointments with the [facility] team. He was followed by the [facility] team who even conducted home visits. He misssed medical review a few times and insisted he would no longer need to be admitted as he has medication reveiw scheduled on 2022. [facility] gonzalez clairified he would be arranged to have fluphenazine decanoate 25 mg im q2 week . He may have been informed that lexapro GI side effect diarrhoea would reduce. He was lsited that he would continue to raman elexapro. In other areas of entries, lexapro was discontinued. However, he may be actively useing substances that he did nto apy attention to the 4 x phone messages or home visits by the ACT tteam for the past few months. the lexopro doage was entered as low dosage range 10 mg po od. past psychaitric history and substance use history.: diagnsoed as schizoaffective disorder comorbid CARL: alcohol cannabis and nicotine disorder. he was tried on various classes of Rx as listed in the above. Cindy has had psychiatric admsisions in the past few years. [facility] Emergency visit is docuemnted as recent as the past 3 months . Medical history: Hypothyroidism. GERD . query Ulcer history. Query asthma he was on albuterol inhaler 0.09 mg aerosol 2 buffs qid. past psychosocial histroy: he did not elaborate much on his family or origin. He was not employed in the [employer]. He did nto cite any stressor financial legal or occupational . His social support was highly scanty and insufficent to help MSE; he was somewhat intense and articulated repeatedly ove rhis GI complaint leading to his non-adherence but did not articualte the reason for his XOCHILT> visit. He maintained good eye continent, fluid in hi sconveration. No pressrued of speech. Affect; moderatly tense, not blunted bu tguarded at times. constricted range of affect. congruenet with his thought content. He was preoccupied with the strings of phone calls left from [facility] . He denied any psychotic elements of hallucinations or mood chagnes. He denied he has been activley used cocaine, cannabis, amphetamine or methamphetmine (urine positive).He deneid nay halluciantiosn or delusions of grandeur or paranoia. No suicidal or homicidal ideation. Cognition: he was fully oriented no insight judgmet. positive strength: forthcoming in his agreeing that he requires treatment. not distractable. Thought process; no loosening of assocations . Diagnosis: schizoaffective Disorder in partial relapse . comorbid cannabis use, cocaine use disorder, amphetamine use disorder nicotine dependence management 1.Pt requires brief stabilizaiton at least until Saturdayaugust 10, 2022 2, Monitor for any emerging suicidal or homicidal ideation. 3. repeat urine toxicology screen counseling pt re: CARL and negative effect on mental heatlh 4. Reengage pt with ACT team and [facility] follow up team 5. consultat unit as required for community placement. 08/09/22 15:36 08/09/22 15:40
[2022-08-10 06:48] VITALS: BP 115/60; PULSE 66; RESP 14; TEMP 96.8
[2022-08-10] MEDS: NICOTINE 14MG/24HR PATCH TRANSDERM SCH (08:54)
[2022-08-10] MEDS ORDERED: fluPHENAZine DECANOATE 25 MG/ML 5ML MDV IM SCH ×2 (11:39→12:00)
--- NOTE | 2022-08-10 12:15 | P.HPMEDMHU ---
History of Present Illness H&P Date: 08/10/22 Patient is a 76-year-old male in mental health unit. He has a history of nicotine dependence, occasional alcohol use, polysubstance abuse. [facility] has been consulted for medical management. Patient claims that he has a history of hypothyroidism and has been taking levothyroxine at home. However, unsure if he is compliant with it for his thyroid function has been tested in a while. Here his TSH is 2.8 to, which is normal. Rest of the labs are otherwise unremarkable. He smokes one pack per day. He occasionally drinks alcohol. Urine toxicology was positive for amphetamines, methamphetamines, cocaine, and marijuana. Pertinent positives and negatives as discussed in HPI, a complete review of systems was performed and all other systems are negative. Patient seen and examined at bedside. Vital signs reviewed General: nontoxic, no distress, appears at stated age Derm: warm, dry Head: atraumatic, normocephalic, symmetric Eyes: EOMI, no lid lag, anicteric sclera, pupils equal round reactive to light ENT: Nose and ears atraumatic Neck: No thyromegaly, supple Mouth: no lip lesion, mucus membranes moist Cardiovascular: S1S2 reg, no murmur, no edema Lungs: clear to auscultation bilateral, no rhonchi, no rales, no wheeze, no accessory muscle use Abdominal: soft, nontender to palpation, no guarding, no appreciable organomegaly Ext: no gross muscle atrophy, muscle strength muscle strength 5 out of 5 in all 4 extremities, no contractures Neuro: CN II-XII grossly intact Psych: Alert, oriented, appropriate affect Assessment/Plan: Psychosis Nicotine dependence Alcohol use Polysubstance abuse Possible hypothyroidism -Psychosis management per psychiatry -Counseled regarding smoking, alcohol, polysubstance abuse cessation -Patient advised to see his PCP, to go over his hypothyroidism medication if he is still taking it -Currently his TSH is within normal limits Thank you for allowing us to participate in the care of this pleasant patient. Do not hesitate to contact us with questions. Someone can be reached from the [facility] hospitalist group all hours of the day at [phone] or via [email or web address]. Past Medical History Past Medical History: No Reported History Additional Past Medical History / Comment(s): Schizoaffective Disorder; Psychosis; Alice; Scoliosis , stomach ulcers History of Any Multi-Drug Resistant Organisms: None Reported Past Surgical History: Hernia Repair Past Anesthesia/Blood Transfusion Reactions: No Reported Reaction Past Psychological History: Depression, Schizophrenia Smoking Status: Current every day smoker Past Alcohol Use History: Daily Past Drug Use History: Cocaine, Marijuana, Methamphetamine Additional Drug Use History / Comment(s): Pt reports smoking marijuana "when I can get it." Medications and Allergies Home Medications Medication Instructions Recorded Confirmed Type fluPHENAZine decanoate [Prolixin 50 mg IM Q14D 08/08/22 08/10/22 History Decanoate] Allergies Allergy/AdvReac Type Severity Reaction Status Date / Time aspirin Allergy Unknown Verified 08/08/22 23:03 haloperidol [From Haldol] Allergy Rash/Hives Verified 08/08/22 23:03 haloperidol lactate Allergy Rash/Hives Verified 08/08/22 23:03 [From Haldol] risperidone [From Risperdal] Allergy MUSCLE Verified 08/08/22 23:03 SPASMS Physical Exam Vitals: Vital Signs Temp Pulse Resp BP 08/10/22 06:38 96.8 F L 66 14 115/60 Cranial Nerve Examination - Cranial Nerves Cranial Nerve II- Optic: Intact Cranial Nerve III- Oculomotor: Intact Cranial Nerve IV- Trochlear: Intact Cranial Nerve V- Trigeminal: Intact Cranial Nerve - Abducens: Intact Cranial Nerve VII- Facial: Intact Cranial Nerve VIII- Auditory: Intact Cranial Nerve IX- Glossopharyngeal: Intact Cranial Nerve X- Vagus: Intact Cranial Nerve XI- Accessory: Intact Cranial Nerve XII- Hypoglossal: Intact Results CBC & Chem 7: 08/09/22 02:35 08/09/22 02:35 Thrombosis Risk Factor Assmnt - Choose All That Apply Any of the Below Risk Factors Present?: No Other Risk Factors: No Thrombosis Risk Factor Assessment Level: Very Low Risk
--- NOTE | 2022-08-10 12:30 | P.DS ---
Providers Date of admission: 08/09/22 03:07 Expected date of discharge: 08/10/22 Attending physician: Franky Olmos MD Discharge summary by John MEADE MD He was seen on August 09 and August 10 2022 in person. His progress was discussed gonzalez meeting and with [facility] staff. He was well engaged to the system;however, he did not think having a few joints with his peers would have adverse impact on his mental Health. He did nto consider himself as having "addicted" to Cryst METH, METH and cannabis. When he was admtited his urine was tested postivie . He initially viewed his admission as a mix up in his communication and attributed the blame to ACT team for leaving numerous messages. His partial non-adherence to the program underlies his Emerg admsision. Wh He seemed to weigh heavinly on his Rx mis-management; but later on , he become more relaxed and did not say much on his Tyroid off for 3 days . an dhis Lexapro side effect "being too much: for him: GI diarrhoea. When he was seen, he was more pleasant and agreed to resume his Depot Prolixin decanoate im today prior to discharge. He talked freely about hi sdaily routine ; exercise and meal preparation No paranoia. Affect; authymic congruent with thought content with full range of affect. No delusons No hallucinations > Cog: he was oriented. with improved insight and judgment Disgnosis: schizoaffective disorder . cannabis METH use disorder. Discharge follow up : [facility], Consults: 08/09/22 03:07 Consult Physician Routine Consulting Provider: [facility] Consult Reason/Comments: h and p Do you want consulting provider notified?: Yes, Notify in am Primary care physician: Physician Nonstaff Patient Condition at Discharge: Fair Plan - Discharge Summary Discharge Rx Participant: Yes New Discharge Prescriptions: Continue fluPHENAZine decanoate [Prolixin Decanoate] 50 mg IM Q14D Discharge Medication List fluPHENAZine decanoate [Prolixin Decanoate] 50 mg IM Q14D 08/08/22 [History] Follow up Appointment(s)/Referral(s): Elyse Villafuerte MD [REFERRING] - 08[facility]16[facility]22 [facility] Patient Instructions/Handouts: How to Stop Smoking (ED), Schizoaffective Disorder (ED) Activity/Diet/Wound Care/Special Instructions: Avoid the use of street drugs and alcohol. Take all medications as prescribed. When you are in need of refills on your medications, please contact your medical provider and/or outpatient psychiatrist to have this done. Please go to scheduled outpatient appointments for aftercare treatment. If symptoms return or become worse, call the crisis line at and/or go to the nearest emergency room for evaluation.
== END 2022-08-10 13:00 | disposition home or self-care (01) | DRG 885 ==
LOC: EC 20:38 → 3MHU 08-09 03:07
PROVIDERS: ADMIT Psychiatry & Neurology Psychiatry; ATTEND Psychiatry & Neurology Psychiatry
DX: F25.0 Schizoaffective disorder, bipolar type (principal); F14.90 Cocaine use, unspecified, uncomplicated; F15.90 Other stimulant use, unspecified, uncomplicated; F17.200 Nicotine dependence, unspecified, uncomplicated; F41.0 Panic disorder [episodic paroxysmal anxiety]; K21.9 Gastro-esophageal reflux disease without esophagitis; M41.9 Scoliosis, unspecified; Z87.11 Personal history of peptic ulcer disease; Z91.148 Patient's other noncompliance with medication regimen for other reason
CPT/HCPCS: 80053; 80061; 80306; 81001; 82075; 83036; 84443; 85025; 87636

== ENCOUNTER 2022-09-14 10:39 | Emergency (ER) | payer MEDICARE, OTHER ==
--- NOTE | 2022-09-14 10:59 | ED ---
Anxiety HPI - General Chief Complaint: Psychiatric Symptoms Stated Complaint: Anxiety Time Seen by Provider: 09/14/22 10:41 - History of Present Illness Initial Comments: Patient is a 27-year-old male presenting to the emergency room with concerns regarding severe anxiety. He states that he is not currently taking any maintenance medication or when necessary medication for chronic anxiety and panic attacks. He reports that his last panic attack he came to the emergency room and received benzos to treat his symptoms. He did attempt of marijuana to help with his symptoms along with smoking cigarettes but these did not help with his symptoms. He follows with [facility] but states that due to transportation issues he missed his appointment yesterday. He denies any hallucinations, delusions, suicidal thoughts, or homicidal thoughts. He has no significant past medical history but has past psychiatric history includes schizoaffective disorder with depression, episodes of alice and acute psychosis. - Related Data Home Medications: Home Medications Medication Instructions Recorded Confirmed fluPHENAZine decanoate [Prolixin 50 mg IM Q14D 08/08/22 08/10/22 Decanoate] Previous Rx's Medication Instructions Recorded LORazepam [Ativan] 1 mg PO DAILY PRN 3 Days #3 tab 09/14/22 Allergies/Adverse Reactions: Allergies Allergy/AdvReac Type Severity Reaction Status Date / Time aspirin Allergy Unknown Verified 09/14/22 11:01 haloperidol [From Haldol] Allergy Rash/Hives Verified 09/14/22 11:01 haloperidol lactate Allergy Rash/Hives Verified 09/14/22 11:01 [From Haldol] risperidone [From Risperdal] Allergy MUSCLE Verified 09/14/22 11:01 SPASMS Review of Systems ROS Statement: Those systems with pertinent positive or pertinent negative responses have been documented in the HPI. ROS Other: All systems not noted in ROS Statement are negative. Past Medical History Past Medical History: No Reported History Additional Past Medical History / Comment(s): Schizoaffective Disorder; Psychosis; Alice; Scoliosis , stomach ulcers History of Any Multi-Drug Resistant Organisms: None Reported Past Surgical History: Hernia Repair Past Anesthesia/Blood Transfusion Reactions: No Reported Reaction Past Psychological History: Depression, Schizophrenia Smoking Status: Current every day smoker Past Alcohol Use History: Daily Past Drug Use History: Cocaine, Marijuana, Methamphetamine Additional Drug Use History / Comment(s): Pt reports smoking marijuana "when I can get it." General Exam Limitations: no limitations General appearance: alert, in no apparent distress Head exam: Present: atraumatic, normocephalic, normal inspection Eye exam: Present: normal appearance, PERRL, EOMI. Absent: scleral icterus, conjunctival injection, periorbital swelling ENT exam: Present: normal exam, mucous membranes moist Neck exam: Present: normal inspection. Absent: tenderness, lymphadenopathy Respiratory exam: Present: normal lung sounds bilaterally. Absent: respiratory distress, wheezes, rales, rhonchi, stridor Cardiovascular Exam: Present: regular rate, normal rhythm, normal heart sounds. Absent: systolic murmur, diastolic murmur, rubs, gallop, clicks GI/Abdominal exam: Present: soft, normal bowel sounds. Absent: distended, tenderness, guarding, rebound, rigid Extremities exam: Present: normal inspection, full ROM. Absent: pedal edema, joint swelling Back exam: Present: normal inspection, full ROM Neurological exam: Present: alert, oriented X3, CN II-XII intact Psychiatric exam: Present: flat affect Skin exam: Present: warm, dry, intact, normal color. Absent: rash Course Vital Signs 09/14/22 09/14/22 10:58 11:10 Temperature 98.1 F Pulse Rate 92 Respiratory 16 20 Rate Blood Pressure 119/78 O2 Sat by Pulse 97 Oximetry Medical Decision Making - Medical Decision Making Was pt. sent in by a medical professional or institution (RODOLFO Cortes, BEATER AND PULPER FEEDER, urgent care, hospital, or prison...) When possible be specific @ -No Did you speak to anyone other than the patient for history (EMS, parent, family, police, friend...)? What history was obtained from this source @ -No Did you review nursing and triage notes (agree or disagree)? Why? @ -I reviewed and agree with nursing and triage notes Were old charts reviewed (outside hosp., previous admission, EMS record, old EKG, old radiological studies, urgent care reports/EKG's, prison records)? Report findings @ -No old charts were reviewed Differential Diagnosis (chest pain, altered mental status, abdominal pain women, abdominal pain men, vaginal bleeding, weakness, fever, dyspnea, syncope, headache, dizziness, GI bleed, back pain, seizure, CVA, palpatations, mental health, musculoskeletal)? @ -Differential Mental Health Depression, anxiety, bipolar, psychosis, schizophrenia, borderline personality, situational depression, adjustment disorder, behavioral disorder, brain tumor, malingering, substance abuse, encephalopathy, medication reaction, dementia, hypothyroidism, degenerative neurologic disorder, lupus.... This is not meant to be all-inclusive list EKG interpreted by me (3pts min.). @ -None done X-rays interpreted by me (1pt min.). @ -None done CT interpreted by me (1pt min.). @ -None done U/S interpreted by me (1pt. min.). @ -None done What testing was considered but not performed or refused? (CT, X-rays, U/S, labs)? Why? @ -None What meds were considered but not given or refused? Why? @ -None Did you discuss the management of the patient with other professionals (professionals i.e. , PA, BEATER AND PULPER FEEDER, lab, RT, psych nurse, social insurance analyst, firefighter, teacher, department of natural resources officer, bottle caser)? Give summary @ -No Was smoking cessation discussed for >3mins.? @ -No Was critical care preformed (if so, how long)? @ -No Were there social determinants of health that impacted care today? How? (Homelessness, low income, unemployed, alcoholism, drug addiction, transportation, low edu. Level, literacy, decrease access to med. care, detention, rehab)? @ -No Was there de-escalation of care discussed even if they declined (Discuss DNR or withdrawal of care, Hospice)? DNR status @ -No What co-morbidities impacted this encounter? (DM, HTN, Smoking, COPD, CAD, Cancer, CVA, ARF, Chemo, Hep., AIDS, mental health diagnosis, sleep apnea, morbid obesity)? @ -Multiple mental health diagnosis Was patient admitted / discharged? Hospital course, mention meds given and route, prescriptions, significant lab abnormalities, going to OR and other pertinent info. @ -Presenting symptoms discussed with patient who is willing to voluntarily admit himself to psychiatric unit for further evaluation and treatment due to recurrent panic attacks and difficulties with outpatient follow-up along with no medications currently being prescribed to him for his symptoms. He denies any suicidal thoughts no hallucinations or delusions. Patient placed and psychiatric down with records and charts removed along with belongings. Breath alcohol test 0.00. Will defer medication administration at this time and cleared from a medical standpoint for psychiatric evaluation. Will obtain urine drug screen and COVID testing preemptively for psychiatric admission. We'll monitor closely and maintain safety. Patient evaluated by EPS nurse who discussed patient's medications and safety plan. per her request 1 dose of IM Ativan given to help with acute anxiety. She is clearing the patient to be discharged home with close follow-up with [facility] which she is 30 established with. Will provide 3 tablets of Ativan to use for severe anxiety. Education regarding caution with Ativan as a cause may cause drowsiness and not to take other medications that may cause drowsiness including any marijuana or alcohol to be used with Ativan. Questions and concerns answered. Return parameters to the emergency room discussed. Will discharge home with safety plan in place along with 3 tablets of Ativan to use for severe anxiety encouraging continued follow-up with his psychiatry team at [facility] for his anxiety and schizoaffective disorder bipolar type. Undiagnosed new problem with uncertain prognosis? @ -No Drug Therapy requiring intensive monitoring for toxicity (Heparin, Nitro, Insulin, Cardizem)? @ -No Were any procedures done? @ -No Diagnosis/symptom? @ -Anxiety Acute, or Chronic, or Acute on Chronic? @ -Acute on chronic Uncomplicated (without systemic symptoms) or Complicated (systemic symptoms)? @ -Uncomplicated Side effects of treatment? @ -No Exacerbation, Progression, or Severe Exacerbation? @ -No Poses a threat to life or bodily function? How? (Chest pain, [place], [place], pneumonia, PE, COPD, DKA, ARF, appy, cholecystitis, CVA, Diverticulitis, Homicidal, Suici juan, threat to staff... and all critical care pts) @ -No Diagnosis/symptom? @ -Schizoaffective with bipolar type Acute, or Chronic, or Acute on Chronic? @ -Acute Uncomplicated (without systemic symptoms) or Complicated (systemic symptoms)? @ -Uncomplicated Side effects of treatment? @ -none Exacerbation, Progression, or Severe Exacerbation] @ -no Poses a threat to life or bodily function? @ -no Case discussed with Dr. Wilkins. Disposition Clinical Impression: Anxiety and depression, Schizoaffective disorder, bipolar type Disposition: HOME SELF-CARE Condition: Stable Instructions (If sedation given, give patient instructions): Schizophrenia (ED), Anxiety (ED) Additional Instructions: Utilize Ativan prescription for severe anxiety. Do not take Ativan with any other medications that may cause drowsiness including marijuana or alcohol. Please follow-up with community mental health per your psychiatry team's recommendations. Please continue your regular psychiatric medication injections. Follow safety plan as outlined by psychiatric nurse. Please return to the Emergency Department if symptoms worsen or any other concerns. Prescriptions: LORazepam [Ativan] 1 mg PO DAILY PRN 3 Days #3 tab PRN Reason: Anxiety Is patient prescribed a controlled substance at d/c from ED?: No Referrals: None,Stated [Primary Care Provider] - 1-2 days Time of Disposition: 14:50
[2022-09-14] MEDS ORDERED: LORazepam 2 MG/ML INJ IM STA (14:40)
[2022-09-14] MEDS ORDERED: LORazepam 1 MG TAB PO ONE (14:45)
[2022-09-14 15:50] VITALS: BP 107/67; PULSE 90; RESP 18; TEMP 98
== END 2022-09-14 15:50 | disposition home or self-care (01) ==
LOC: EC 10:39
DX: F41.9 Anxiety disorder, unspecified (principal); F32.A Depression, unspecified; F25.0 Schizoaffective disorder, bipolar type; F17.210 Nicotine dependence, cigarettes, uncomplicated; F12.90 Cannabis use, unspecified, uncomplicated; F14.90 Cocaine use, unspecified, uncomplicated; F15.90 Other stimulant use, unspecified, uncomplicated; Z88.6 Allergy status to analgesic agent; Z88.8 Allergy status to other drugs, medicaments and biological substances; Z79.899 Other long term (current) drug therapy
CPT/HCPCS: 82075; 99285; 96372; J2060

== ENCOUNTER 2022-09-26 21:59 | Emergency (ER) | payer MEDICARE, OTHER ==
[2022-09-26] MEDS ORDERED: LORazepam 1 MG TAB PO STA (23:10)
--- NOTE | 2022-09-26 23:15 | ED ---
Anxiety HPI - General Chief Complaint: Anxiety Stated Complaint: Mental Health Time Seen by Provider: 09/26/22 23:03 Source: patient, RN notes reviewed, old records reviewed Mode of arrival: ambulatory - History of Present Illness Initial Comments: 27-year-old male presents ambulatory with complaints of anxiety for the past 3 hours. States has a history of anxiety. Does not know what triggered him today. Patient denies any suicidal or homicidal thoughts. He states he does live alone. Last Prolixin shot was given 3 days ago. Does have an appointment with [facility] on the . History of schizoaffective disorder, psychosis, alice, depression, daily smoker, polysubstance abuse MD Complaint: anxiety -: hour(s) (3) Place: home Previous History of Same: Yes Quality: constant Provoking factors: emotional stress Improves With: nothing Worsens With: nothing - Related Data Home Medications: Home Medications Medication Instructions Recorded Confirmed fluPHENAZine decanoate [Prolixin 50 mg IM Q14D 08/08/22 08/10/22 Decanoate] Previous Rx's Medication Instructions Recorded LORazepam [Ativan] 1 mg PO DAILY PRN 3 Days #3 tab 09/14/22 Allergies/Adverse Reactions: Allergies Allergy/AdvReac Type Severity Reaction Status Date / Time aspirin Allergy Unknown Verified 09/26/22 22:42 haloperidol [From Haldol] Allergy Rash/Hives Verified 09/26/22 22:42 haloperidol lactate Allergy Rash/Hives Verified 09/26/22 22:42 [From Haldol] risperidone [From Risperdal] Allergy MUSCLE Verified 09/26/22 22:42 SPASMS Review of Systems ROS Statement: Those systems with pertinent positive or pertinent negative responses have been documented in the HPI. ROS Other: All systems not noted in ROS Statement are negative. Past Medical History Past Medical History: No Reported History Additional Past Medical History / Comment(s): Schizoaffective Disorder; Psychosis; Alice; Scoliosis , stomach ulcers History of Any Multi-Drug Resistant Organisms: None Reported Past Surgical History: Hernia Repair Past Anesthesia/Blood Transfusion Reactions: No Reported Reaction Past Psychological History: Depression, Schizophrenia Smoking Status: Current every day smoker Past Alcohol Use History: Daily Past Drug Use History: Cocaine, Marijuana, Methamphetamine General Exam Limitations: no limitations General appearance: alert, in no apparent distress Head exam: Present: atraumatic Eye exam: Present: normal appearance. Absent: scleral icterus Neck exam: Present: full ROM. Absent: tenderness, meningismus Respiratory exam: Present: normal lung sounds bilaterally. Absent: respiratory distress, accessory muscle use Cardiovascular Exam: Present: tachycardia GI/Abdominal exam: Present: soft Extremities exam: Present: normal capillary refill Back exam: Absent: tenderness, CVA tenderness (R), CVA tenderness (L), paraspinal tenderness, vertebral tenderness Neurological exam: Present: alert, oriented X3, normal gait Psychiatric exam: Present: normal affect, normal mood Skin exam: Present: warm, dry, normal color. Absent: cyanosis, diaphoretic, petechiae, pallor Course Vital Signs 09/26/22 09/26/22 22:38 23:50 Temperature 97.9 F 98.7 F Pulse Rate 110 H 66 Respiratory 22 18 Rate Blood Pressure 138/86 128/97 O2 Sat by Pulse 100 96 Oximetry Medical Decision Making - Medical Decision Making Was pt. sent in by a medical professional or institution (, PA, INSTRUMENTATION FITTER, urgent care, hospital, or assisted...) When possible be specific @ -No Did you speak to anyone other than the patient for history (EMS, parent, family, police, friend...)? What history was obtained from this source @ -No Did you review nursing and triage notes (agree or disagree)? Why? @ -I reviewed and agree with nursing and triage notes Were old charts reviewed (outside hosp., previous admission, EMS record, old EKG, old radiological studies, urgent care reports/EKG's, assisted records)? Report findings @ -Previous ER visit and admission 09/14/2022 Differential Diagnosis (chest pain, altered mental status, abdominal pain women, abdominal pain men, vaginal bleeding, weakness, fever, dyspnea, syncope, headache, dizziness, GI bleed, back pain, seizure, CVA, palpatations, mental health, musculoskeletal)? @ -Differential Mental Health Depression, anxiety, bipolar, psychosis, schizophrenia, borderline personality, situational depression, adjustment disorder, behavioral disorder, brain tumor, malingering, substance abuse, encephalopathy, medication reaction, dementia, hypothyroidism, degenerative neurologic disorder, lupus.... This is not meant to be all-inclusive list EKG interpreted by me (3pts min.). @ -n/a X-rays interpreted by me (1pt min.). @ -None done CT interpreted by me (1pt min.). @ -None done U/S interpreted by me (1pt. min.). @ -None done What testing was considered but not performed or refused? (CT, X-rays, U/S, labs)? Why? @ -None What meds were considered but not given or refused? Why? @ -None Did you discuss the management of the patient with other professionals (professionals i.e. , PA, INSTRUMENTATION FITTER, lab, RT, psych nurse, social service worker, bobbin collector, teacher, complaint investigations officer, mental health case manager)? Give summary @ -No Was smoking cessation discussed for >3mins.? @ -No Was critical care preformed (if so, how long)? @ -No Were there social determinants of health that impacted care today? How? (Homelessness, low income, unemployed, alcoholism, drug addiction, transportation, low edu. Level, literacy, decrease access to med. care, alf, rehab)? @ -No Was there de-escalation of care discussed even if they declined (Discuss DNR or withdrawal of care, Hospice)? DNR status @ -No What co-morbidities impacted this encounter? (DM, HTN, Smoking, COPD, CAD, Cancer, CVA, ARF, Chemo, Hep., AIDS, mental health diagnosis, sleep apnea, morbid obesity)? @ -History of schizoaffective disorder, psychosis, alice, depression, daily smoker, polysubstance abuse Was patient admitted / discharged? Hospital course, mention meds given and route, prescriptions, significant lab abnormalities, going to OR and other pertinent info. @ -Discharged 27-year-old male presents ambulatory with complaints of anxiety for the past 3 hours. States has a history of anxiety. Does not know what triggered him today. Patient denies any suicidal or homicidal thoughts. He states he does live alone. Last Prolixin shot was given 3 days ago. Does have an appointment with [facility] on the . Patient is seen in the emergency room often for mental health. Patient was last in the hospital on September 14 for anxiety. At that time he was given a shot of Ativan and had an evaluation to EPS. He was instructed to follow-up with [facility] and prescribed Ativan 1 mg daily. He has not followed up with [facility] yet. At this time patient is calm and cooperative. Denies any suicidal or homicidal ideations. Vital signs are stable. Patient is agreeable to receiving a dose of Ativan and discharge. Case discussed with Dr. Baum Undiagnosed new problem with uncertain prognosis? @ -No Drug Therapy requiring intensive monitoring for toxicity (Heparin, Nitro, Insulin, Cardizem)? @ -No Were any procedures done? @ -No Diagnosis/symptom? @ -Anxiety Acute, or Chronic, or Acute on Chronic? @ -Acute on chronic Uncomplicated (without systemic symptoms) or Complicated (systemic symptoms)? @ -Uncomplicated Side effects of treatment? @ -No Exacerbation, Progression, or Severe Exacerbation? @ -No Poses a threat to life or bodily function? How? (Chest pain, [place], [place], pneumonia, PE, COPD, DKA, ARF, appy, cholecystitis, CVA, Diverticulitis, Homicidal, Suicidal, threat to staff... and all critical care pts) @ -No Disposition Clinical Impression: Acute anxiety Disposition: HOME SELF-CARE Condition: Good Instructions (If sedation given, give patient instructions): Generalized Anxiety Disorder (ED) Additional Instructions: Keep your appointment with community mental health as scheduled on the . Return to the emergency room with a new concerning symptoms oincluding suicidal or homicidal ideations. Is patient prescribed a controlled substance at d/c from ED?: No Referrals: None,Stated [Primary Care Provider] - 1-2 days Time of Disposition: 23:15
[2022-09-26 23:55] VITALS: BP 128/97; PULSE 66; RESP 18; TEMP 98.7
== END 2022-09-26 23:55 | disposition home or self-care (01) ==
LOC: EC 21:59
DX: F41.9 Anxiety disorder, unspecified (principal); F32.A Depression, unspecified; F17.200 Nicotine dependence, unspecified, uncomplicated; F12.90 Cannabis use, unspecified, uncomplicated; F15.90 Other stimulant use, unspecified, uncomplicated; Z79.899 Other long term (current) drug therapy; Z88.1 Allergy status to other antibiotic agents; Z88.8 Allergy status to other drugs, medicaments and biological substances; Z88.6 Allergy status to analgesic agent
CPT/HCPCS: 99284

== ENCOUNTER 2022-12-24 12:23 | Emergency (ER) | payer MEDICARE, OTHER ==
--- NOTE | 2022-12-24 12:58 | ED ---
General Adult HPI - General Chief complaint: Psychiatric Symptoms Stated complaint: mental health Time Seen by Provider: 12/24/22 12:40 Source: patient, RN notes reviewed, old records reviewed Mode of arrival: ambulatory Limitations: no limitations - History of Present Illness Initial comments: This is a 27-year-old male presents emergency Department states he is homeless he has not been taking his medications because he hasn't been unable to get the [facility]. Patient states he suicidal now has been for last 3 days. Patient states he wants to jump in front of a bus or jump off the bridge possibly. Patient states he is not taking any medications for schizophrenia and he also has a history of anxiety. Patient denies any physical complaints today. Patient denies fever chills or cough per patient denies any chest pain difficulty breathing patient denies any abdominal pain patient denies nausea vomiting diarrhea. - Related Data Home Medications Medication Instructions Recorded Confirmed No Known Home Medications 12/24/22 12/24/22 Allergies Allergy/AdvReac Type Severity Reaction Status Date / Time aspirin Allergy Unknown Verified 12/24/22 13:24 haloperidol [From Haldol] Allergy Rash/Hives Verified 12/24/22 13:24 haloperidol lactate Allergy Rash/Hives Verified 12/24/22 13:24 [From Haldol] risperidone [From Risperdal] Allergy MUSCLE Verified 12/24/22 13:24 SPASMS Review of Systems ROS Statement: Those systems with pertinent positive or pertinent negative responses have been documented in the HPI. ROS Other: All systems not noted in ROS Statement are negative. Past Medical History Past Medical History: No Reported History Additional Past Medical History / Comment(s): Schizoaffective Disorder; P sychosis; Alice; Scoliosis , stomach ulcers History of Any Multi-Drug Resistant Organisms: None Reported Past Surgical History: Hernia Repair Past Anesthesia/Blood Transfusion Reactions: No Reported Reaction Past Psychological History: Depression, Schizophrenia Smoking Status: Current every day smoker Past Alcohol Use History: Daily Past Drug Use History: Cocaine, Marijuana, Methamphetamine General Exam - General Exam Comments Initial Comments: GENERAL: Patient is well-developed and well-nourished. Patient is nontoxic and well- hydrated and is in no acute distress. ENT: Neck is soft and supple. No significant lymphadenopathy is noted. Oropharynx is clear. Moist mucous membranes. Neck has full range of motion without eliciting any pain. EYES: The sclera were anicteric and conjunctiva were pink and moist. Extraocular movements were intact and pupils were equal round and reactive to light. Eyelids were unremarkable. PULMONARY: Unlabored respirations. Good breath sounds bilaterally. No audible rales rhonchi or wheezing was noted. CARDIOVASCULAR: There is a regular rate and rhythm without any murmurs gallops or rubs. ABDOMEN: Soft and nontender with normal bowel sounds. SKIN: Skin is clear with no lesions or rashes and otherwise unremarkable. NEUROLOGIC: Patient is alert and oriented x3. Cranial nerves II through XII are grossly intact. Motor and sensory are also intact. Normal speech, volume and content. Symmetrical smile. MUSCULOSKELETAL: Normal extremities with adequate strength and full range of motion. LYMPHATICS: No significant lymphadenopathy is noted PSYCHIATRIC: Patient states he is suicidal and he has not been compliant with medication regime Limitations: no limitations Course Vital Signs 12/24/22 12:27 Temperature 98.4 F Pulse Rate 86 Respiratory 20 Rate Blood Pressure 140/88 O2 Sat by Pulse 99 Oximetry Medical Decision Making - Medical Decision Making Was pt. sent in by a medical professional or institution (, PA, TRANSONIC ENGINEER, urgent care, hospital, or fpc...) When possible be specific @ -No Did you speak to anyone other than the patient for history (EMS, parent, family, police, friend...)? What history was obtained from this source @ -No Did you review nursing and triage notes (agree or disagree)? Why? @ -I reviewed and agree with nursing and triage notes Were old charts reviewed (outside hosp., previous admission, EMS record, old EKG, old radiological studies, urgent care reports/EKG's, fpc records)? Report findings @ -No old charts were reviewed Differential Diagnosis (chest pain, altered mental status, abdominal pain women, abdominal pain men, vaginal bleeding, weakness, fever, dyspnea, syncope, headache, dizziness, GI bleed, back pain, seizure, CVA, palpatations, mental health, musculoskeletal)? @ -Differential Mental Health Depression, anxiety, bipolar, psychosis, schizophrenia, borderline personality, situational depression, adjustment disorder, behavioral disorder, brain tumor, malingering, substance abuse, encephalopathy, medication reaction, dementia, hypothyroidism, degenerative neurologic disorder, lupus.... This is not meant to be all-inclusive list EKG interpreted by me (3pts min.). @ -As above X-rays interpreted by me (1pt min.). @ -None done CT interpreted by me (1pt min.). @ -None done U/S interpreted by me (1pt. min.). @ -None done What testing was considered but not performed or refused? (CT, X-rays, U/S, labs)? Why? @ -None What meds were considered but not given or refused? Why? @ -None Did you discuss the management of the patient with other professionals (professionals i.e. , PA, TRANSONIC ENGINEER, lab, RT, psych nurse, social sciences instructor, radiology aide, teacher, aoc airspace control officer, corrections caseworker)? Give summary @ -I spoke with the psychiatric nurse Was smoking cessation discussed for >3mins.? @ -No Was critical care preformed (if so, how long)? @ -No Were there social determinants of health that impacted care today? How? (Homelessness, low income, unemployed, alcoholism, drug addiction, transportation, low edu. Level, literacy, decrease access to med. care, halfway, rehab)? @ -No Was there de-escalation of care discussed even if they declined (Discuss DNR or withdrawal of care, Hospice)? DNR status @ -No What co-morbidities impacted this encounter? (DM, HTN, Smoking, COPD, CAD, Cancer, CVA, ARF, Chemo, Hep., AIDS, mental health diagnosis, sleep apnea, morbid obesity)? @ -None Was patient admitted / discharged? Hospital course, mention meds given and route, prescriptions, significant lab abnormalities, going to OR and other pertinent info. @ -After speaking to the psychiatric nurse he filled out a petition and I filled out a clinical certification for the patient's admission and she will be transferred to another facility Undiagnosed new problem with uncertain prognosis? @ -No Drug Therapy requiring intensive monitoring for toxicity (Heparin, Nitro, Insulin, Cardizem)? @ -No Were any procedures done? @ -No Diagnosis/symptom? @ -Suicidal ideation Acute, or Chronic, or Acute on Chronic? @ -Acute Uncomplicated (without systemic symptoms) or Complicated (systemic symptoms)? @ -Complicated Side effects of treatment? @ -No Exacerbation, Progression, or Severe Exacerbation? @ -No Poses a threat to life or bodily function? How? (Chest pain, USA, CA, pneumonia, PE, COPD, DKA, ARF, appy, cholecystitis, CVA, Diverticulitis, Homicidal, Suicidal, threat to staff... and all critical care pts) @ -Yes if patient were to leave he could possibly harm himself or kill himself. Diagnosis/symptom? @ -Cocaine and amphetamine abuse Acute, or Chronic, or Acute on Chronic? @ -Acute Uncomplicated (without systemic symptoms) or Complicated (systemic symptoms)? @ -Complicated Side effects of treatment? @ -none Exacerbation, Progression, or Severe Exacerbation] @ -no Poses a threat to life or bodily function? @ -no - Lab Data Lab Results 12/24/22 Range/Units 13:56 Urine Opiates Screen Not Detected (NotDetected) Ur Oxycodone Screen Not Detected (NotDetected) Urine Methadone Screen Not Detected (NotDetected) Ur Propoxyphene Screen Not Detected (NotDetected) Ur Barbiturates Screen Not Detected (NotDetected) U Tricyclic Antidepress Not Detected (NotDetected) Ur Phencyclidine Scrn Not Detected (NotDetected) Ur Amphetamines Screen Detected H (NotDetected) U Methamphetamines Scrn Not Detected (NotDetected) U Benzodiazepines Scrn Not Detected (NotDetected) Urine Cocaine Screen Detected H (NotDetected) U Marijuana (THC) Screen Detected H (NotDetected) Disposition Clinical Impression: Suicidal ideation, Cocaine abuse, Amphetamine abuse Disposition: TRANSFER TO PSYCH HOSP/UNIT Referrals: None,Stated [Primary Care Provider] - 1-2 days Time of Disposition: 16:38
[2022-12-24 14:19] LABS: Amphetamine Screen,Urine Detected (NotDetected); Barbiturate Screen,Urine Not Detected (NotDetected); Benzodiazepines Screen,Urine Not Detected (NotDetected); Cocaine Screen,Urine Detected (NotDetected); Methadone Screen, Urine Not Detected (NotDetected); Opiate Screen,Urine Not Detected (NotDetected); Oxycodone Screen, Urine Not Detected (NotDetected); Phencyclidine Screen,Urine Not Detected (NotDetected); Tricyclic Antidepressant,Urine Not Detected (NotDetected); Urn Cannabinoid Scrn Detected (NotDetected)
[2022-12-24] MEDS ORDERED: NICOTINE 21MG/24HR PATCH TRANSDERM STA (18:03)
[2022-12-25 02:06] LABS: HGB 15.4 gm/dL (13.0-17.5); MCH 34.1 pg (25.0-35.0); MCV 97.2 fL (80.0-100.0); Mean Platelet Volume 7.6; Platelet Count 232 k/uL (150-450); RBC 4.53 m/uL (4.30-5.90); RDW 12.7 % (11.5-15.5); WBC 6.6 k/uL (3.8-10.6)
[2022-12-25 02:15] LABS: ALT 17 U/L (4-49); AST 17 U/L (17-59); African American GFR (CKD) >90 (>60 ml/min/1.73 sqM); Albumin 4.3 g/dL (3.5-5.0); Alkaline Phosphatase 84 U/L (38-126); Anion Gap 9 mmol/L; Blood Urea Nitrogen 11 mg/dL (9-20); Calcium 9.1 mg/dL (8.4-10.2); Carbon Dioxide 24 mmol/L (22-30); Chloride 105 mmol/L (98-107); Glucose 100 mg/dL (74-99); Non-African American GFR(CKD) >90 (>60 ml/min/1.73 sqM); Potassium 3.9 mmol/L (3.5-5.1); Sodium 138 mmol/L (137-145); Total Bilirubin 1.2 mg/dL (0.2-1.3); Total Protein 6.6 g/dL (6.3-8.2)
[2022-12-25 03:30] LABS: Amorphous Sediment,Urine Occasional /hpf; Appearance,Urine Cloudy (Clear); Bilirubin,Urine Negative (Negative); Blood,Urine Negative (Negative); Color,Urine Yellow; Glucose,Urine (UA) Negative (Negative); Ketones,Urine Negative (Negative); Leukocyte Esterase,Urine Negative (Negative); Mucus,Urine Few /hpf; Nitrite,Urine Negative (Negative); Protein,Urine Negative (Negative); RBC,Urine <1 /hpf (0-5); Specific Gravity,Urine 1.025 (1.001-1.035); Squamous Epithelial Cell,Urine <1 /hpf (0-4); WBC,Urine 1 /hpf (0-5)
[2022-12-25 08:27] VITALS: RESP 18
[2022-12-25 10:35] VITALS: BP 152/93; PULSE 86; TEMP 97
== END 2022-12-25 11:06 ==
LOC: EC 12:23 → EEVIPCON 12:23 → EC 12-25 11:06
DX: R45.851 Suicidal ideations (principal); F14.10 Cocaine abuse, uncomplicated; F15.10 Other stimulant abuse, uncomplicated; F17.200 Nicotine dependence, unspecified, uncomplicated; F12.90 Cannabis use, unspecified, uncomplicated; Z86.59 Personal history of other mental and behavioral disorders; Z88.6 Allergy status to analgesic agent; Z88.8 Allergy status to other drugs, medicaments and biological substances; Z20.822 Contact with and (suspected) exposure to COVID-19
CPT/HCPCS: 82075; 36415; 80053; 85027; 81001; 80306; 87635; 99285; S4990

== ENCOUNTER 2023-01-16 21:08 | Emergency (ER) | payer MEDICARE, OTHER ==
[2023-01-16 21:18] VITALS: TEMP 98.2
--- NOTE | 2023-01-16 22:55 | ED ---
Psych HPI - General Source: patient, old records reviewed Mode of arrival: ambulatory Limitations: no limitations - History of Present Illness MD Complaint: suicidal ideation, feels depressed -: days(s) Associated Psychiatric Symptoms: depression, suicidal ideation History of same: No Quality: constant Improves With: none Worsens With: none Context: recent alcohol abuse, recent drug abuse, significant life stressor Associated Symptoms: denies other symptoms Treatments Prior to Arrival: placed on mental health hold <Hernan Bach - Last Filed: 01/16/23 23:19> <Enzo Baum - Last Filed: 01/17/23 14:12> - General Chief Complaint: Psychiatric Symptoms Stated Complaint: Mental Health Time Seen by Provider: 01/16/23 21:59 - History of Present Illness Initial Comments: This is a 27-year-old male to the emergency department today. He presents today for psychiatric evaluation. Patient is known to our hospital for psychiatric evaluation and treatment and is here for psychiatric evaluation, patient denies drugs or alcohol today she again does have history of psychiatric illness polysubstance abuse and alcoholism (Hernan Bach) - Related Data Home Medications Medication Instructions Recorded Confirmed Propranolol LA [Inderal LA] 60 mg PO DAILY 01/17/23 01/17/23 fluPHENAZine HCl 10 mg PO BID 01/17/23 01/17/23 traZODone HCL 100 mg PO HS 01/17/23 01/17/23 Allergies Allergy/AdvReac Type Severity Reaction Status Date / Time aspirin Allergy Unknown Verified 01/17/23 14:02 haloperidol [From Haldol] Allergy Rash/Hives Verified 01/17/23 14:02 haloperidol lactate Allergy Rash/Hives Verified 01/17/23 14:02 [From Haldol] naproxen Allergy Unknown Verified 01/17/23 14:02 risperidone [From Risperdal] AdvReac MUSCLE Verified 01/17/23 14:02 SPASMS Review of Systems ROS Other: All systems not noted in ROS Statement are negative. <Hernan Bach - Last Filed: 01/16/23 23:19> ROS Other: All systems not noted in ROS Statement are negative. <Enzo Baum - Last Filed: 01/17/23 14:12> ROS Statement: Those systems with pertinent positive or pertinent negative responses have been documented in the HPI. Past Medical History Past Medical History: No Reported History Additional Past Medical History / Comment(s): Schizoaffective Disorder; Psychosis; Alice; Scoliosis , stomach ulcers History of Any Multi-Drug Resistant Organisms: None Reported Past Surgical History: Hernia Repair Past Anesthesia/Blood Transfusion Reactions: No Reported Reaction Past Psychological History: Depression, Schizophrenia Smoking Status: Current every day smoker Past Alcohol Use History: Daily Past Drug Use History: Cocaine, Marijuana, Methamphetamine <Henran Bach - Last Filed: 01/16/23 23:19> General Exam General appearance: alert, in no apparent distress Head exam: Present: atraumatic, normocephalic, normal inspection Eye exam: Present: normal appearance, PERRL, EOMI. Absent: scleral icterus, conjunctival injection, periorbital swelling ENT exam: Present: normal exam, mucous membranes moist Neck exam: Present: normal inspection. Absent: tenderness, meningismus, ly mphadenopathy Respiratory exam: Present: normal lung sounds bilaterally. Absent: respiratory distress, wheezes, rales, rhonchi, stridor Cardiovascular Exam: Present: regular rate, normal rhythm, normal heart sounds. Absent: systolic murmur, diastolic murmur, rubs, gallop, clicks GI/Abdominal exam: Present: soft, normal bowel sounds. Absent: distended, tenderness, guarding, rebound, rigid Extremities exam: Present: normal inspection, full ROM, normal capillary refill. Absent: tenderness, pedal edema, joint swelling, calf tenderness Back exam: Present: normal inspection Neurological exam: Present: alert, oriented X3, CN II-XII intact Psychiatric exam: Present: normal affect, normal mood Skin exam: Present: warm, dry, intact, normal color. Absent: rash <Hernan Bach - Last Filed: 01/16/23 23:19> Course <Hernan Bach - Last Filed: 01/16/23 23:19> Vital Signs 01/16/23 01/17/23 21:09 07:10 Temperature 98.2 F Pulse Rate 98 96 Respiratory 18 18 Rate Blood Pressure 136/93 130/82 O2 Sat by Pulse 95 98 Oximetry - Reevaluation(s) Reevaluation #1: 01/16/23 23:20 Medical record is reviewed (Hernan Bach) Reevaluation #2: 01/16/23 23:20 Medical clear for psychiatric evaluation (Hernan Bach) Medical Decision Making - Lab Data Result diagrams: 01/17/23 01:46 01/17/23 01:46 <Enzo Baum - Last Filed: 01/17/23 14:12> - Medical Decision Making Patient was born in the ER pending transfer for psychiatric care. I evaluated the patient and completed clinical certificate at EPS request. He is complaining of suicidal ideation with a plan to freeze to outside or jumping front of a moving vehicle. Patient is cooperative. Understands that we are waiting on psychiatric placement. Clinical certificate completed by myself and placed on the chart. Diagnosis/symptom? @ -Suicidal ideation, suicidal plan, encounter for psychiatric evaluation Acute, or Chronic, or Acute on Chronic? @ -Acute Uncomplicated (without systemic symptoms) or Complicated (systemic symptoms)? @ -Uncomplicated Side effects of treatment? @ -none Exacerbation, Progression, or Severe Exacerbation] @ -no Poses a threat to life or bodily function? @ -Yes (Enzo Baum) - Lab Data Lab Results 01/17/23 01/17/23 01/17/23 Range/Units 01:46 01:46 01:46 WBC 8.9 (3.8-10.6) k/uL RBC 4.25 L (4.30-5.90) m/uL Hgb 14.7 (13.0-17.5) gm/dL Hct 41.2 (39.0-53.0) % MCV 96.9 (80.0-100.0) fL MCH 34.6 (25.0-35.0) pg MCHC 35.7 (31.0-37.0) g/dL RDW 12.1 (11.5-15.5) % Plt Count 205 (150-450) k/uL MPV 7.0 Sodium 140 (137-145) mmol/L Potassium 3.9 (3.5-5.1) mmol/L Chloride 104 (98-107) mmol/L Carbon Dioxide 24 (22-30) mmol/L Anion Gap 12 mmol/L BUN 16 (9-20) mg/dL Creatinine 0.87 (0.66-1.25) mg/dL Est GFR (CKD-EPI)AfAm >90 (>60 ml/min/1.73 sqM) Est GFR (CKD-EPI)NonAf >90 (>60 ml/min/1.73 sqM) Glucose 109 H (74-99) mg/dL Calcium 9.1 (8.4-10.2) mg/dL Total Bilirubin 0.6 (0.2-1.3) mg/dL AST 20 (17-59) U/L ALT 17 (4-49) U/L Alkaline Phosphatase 93 (38-126) U/L Total Protein 6.5 (6.3-8.2) g/dL Albumin 4.4 (3.5-5.0) g/dL Urine Opiates Screen Not Detected (NotDetected) Ur Oxycodone Screen Not Detected (NotDetected) Urine Methadone Screen Not Detected (NotDetected) Ur Propoxyphene Screen Not Detected (NotDetected) Ur Barbiturates Screen Not Detected (NotDetected) U Tricyclic Antidepress Not Detected (NotDetected) Ur Phencyclidine Scrn Not Detected (NotDetected) Ur Amphetamines Screen Not Detected (NotDetected) U Methamphetamines Scrn Not Detected (NotDetected) U Benzodiazepines Scrn Not Detected (NotDetected) Urine Cocaine Screen Not Detected (NotDetected) U Marijuana (THC) Screen Detected H (NotDetected) SARS-CoV-2 (PCR) (Not Detectd) 01/17/23 Range/Units 01:46 WBC (3.8-10.6) k/uL RBC (4.30-5.90) m/uL Hgb (13.0-17.5) gm/dL Hct (39.0-53.0) % MCV (80.0-100.0) fL MCH (25.0-35.0) pg MCHC (31.0-37.0) g/dL RDW (11.5-15.5) % Plt Count (150-450) k/uL MPV Sodium (137-145) mmol/L Potassium (3.5-5.1) mmol/L Chloride (98-107) mmol/L Carbon Dioxide (22-30) mmol/L Anion Gap mmol/L BUN (9-20) mg/dL Creatinine (0.66-1.25) mg/dL Est GFR (CKD-EPI)AfAm (>60 ml/min/1.73 sqM) Est GFR (CKD-EPI)NonAf (>60 ml/min/1.73 sqM) Glucose (74-99) mg/dL Calcium (8.4-10.2) mg/dL Total Bilirubin (0.2-1.3) mg/dL AST (17-59) U/L ALT (4-49) U/L Alkaline Phosphatase (38-126) U/L Total Protein (6.3-8.2) g/dL Albumin (3.5-5.0) g/dL Urine Opiates Screen (NotDetected) Ur Oxycodone Screen (NotDetected) Urine Methadone Screen (NotDetected) Ur Propoxyphene Screen (NotDetected) Ur Barbiturates Screen (NotDetected) U Tricyclic Antidepress (NotDetected) Ur Phencyclidine Scrn (NotDetected) Ur Amphetamines Screen (NotDetected) U Methamphetamines Scrn (NotDetected) U Benzodiazepines Scrn (NotDetected) Urine Cocaine Screen (NotDetected) U Marijuana (THC) Screen (NotDetected) SARS-CoV-2 (PCR) Not Detected (Not Detectd) Disposition <Hernan Bach - Last Filed: 01/16/23 23:19> <Enzo Baum - Last Filed: 01/17/23 14:12> Clinical Impression: Suicidal ideation, Feeling suicidal, Encounter for psychiatric assessment Disposition: TRANSFER TO PSYCH HOSP/UNIT Referrals: [facility] [Primary Care Provider] - 1-2 days
[2023-01-17 02:29] LABS: HCT 41.2 % (39.0-53.0); HGB 14.7 gm/dL (13.0-17.5); MCH 34.6 pg (25.0-35.0); MCHC 35.7 g/dL (31.0-37.0); MCV 96.9 fL (80.0-100.0); Platelet Count 205 k/uL (150-450); RBC 4.25 m/uL (4.30-5.90); RDW 12.1 % (11.5-15.5); WBC 8.9 k/uL (3.8-10.6)
[2023-01-17 02:41] LABS: Amphetamine Screen,Urine Not Detected (NotDetected); Barbiturate Screen,Urine Not Detected (NotDetected); Benzodiazepines Screen,Urine Not Detected (NotDetected); Cocaine Screen,Urine Not Detected (NotDetected); Methadone Screen, Urine Not Detected (NotDetected); Opiate Screen,Urine Not Detected (NotDetected); Oxycodone Screen, Urine Not Detected (NotDetected); Phencyclidine Screen,Urine Not Detected (NotDetected); Tricyclic Antidepressant,Urine Not Detected (NotDetected); Urn Cannabinoid Scrn Detected (NotDetected)
[2023-01-17 02:58] LABS: ALT 17 U/L (4-49); AST 20 U/L (17-59); African American GFR (CKD) >90 (>60 ml/min/1.73 sqM); Albumin 4.4 g/dL (3.5-5.0); Alkaline Phosphatase 93 U/L (38-126); Anion Gap 12 mmol/L; Blood Urea Nitrogen 16 mg/dL (9-20); Calcium 9.1 mg/dL (8.4-10.2); Carbon Dioxide 24 mmol/L (22-30); Chloride 104 mmol/L (98-107); Glucose 109 mg/dL (74-99); Non-African American GFR(CKD) >90 (>60 ml/min/1.73 sqM); Potassium 3.9 mmol/L (3.5-5.1); Sodium 140 mmol/L (137-145); Total Bilirubin 0.6 mg/dL (0.2-1.3); Total Protein 6.5 g/dL (6.3-8.2)
[2023-01-17 21:40] VITALS: BP 99/54; PULSE 54; RESP 16
== END 2023-01-17 22:05 ==
LOC: EC 21:08
DX: Z00.8 Encounter for other general examination (principal); R45.851 Suicidal ideations; F32.A Depression, unspecified; F17.200 Nicotine dependence, unspecified, uncomplicated; F12.90 Cannabis use, unspecified, uncomplicated; Z88.6 Allergy status to analgesic agent; Z88.8 Allergy status to other drugs, medicaments and biological substances; Z79.899 Other long term (current) drug therapy; Z20.822 Contact with and (suspected) exposure to COVID-19
CPT/HCPCS: 36415; 80053; 80306; 82075; 85027; 87635; 99285